=== PATIENT | male | born 1950 | race Caucasian/White ===

== ENCOUNTER 2018-11-23 09:14 | Outpatient (CLI) | payer MEDICARE, SELFPAY ==
[2018-11-23 11:26] VITALS: BMI 19.3
[2018-11-23 11:41] LABS: Hematocrit 52.3 % (42.0-52.0); Hemoglobin 16.9 g/dL (14.1-18.0)
--- NOTE | 2018-11-23 15:54 | PC.NURSE ---
11/23/18 1230 Pt here for therapeutic phlebotomy per equipment operator/laborer. #20 gauge saline lock started in L AC for procedure. Pre VS BP 156/93, heart rate 73, resp 18, O2 sats 98% room air, temp 98.5 temporal. Phlebotomy performed per equipment operator/laborer with pt [place] well/no problems/denies complaints. VS post phlebotomy 164/94, HR 79, resp 18, O2 sats 98% room air, temp 98.3. IV removed/pt discharged home stable condition.
== END 2018-11-23 13:05 | disposition home or self-care (01) ==
PROVIDERS: PCP Family Medicine; Visit Provider Family Medicine
DX: D75.1 Secondary polycythemia (principal)
CPT/HCPCS: 85014; 85018; 99195

== ENCOUNTER 2020-02-04 11:10 | Emergency (ER) | payer MEDICARE, SELFPAY ==
[2020-02-04 11:16] VITALS: BP 150/98; PULSE 92; RESP 18; O2SAT 98; BMI 20.7
[2020-02-04 11:20] VITALS: BMI 20.7
--- NOTE | 2020-02-04 11:21 | XR_ITS ---
PROCEDURE: XR HIP RT 2-3V W/PELVIS CLINICAL INDICATION: fall Posttraumatic pain COMPARISON: No exams were available for comparison FINDINGS: No fracture or dislocation is evident. No significant degenerative change. No lytic or blastic change. Unremarkable soft tissues. IMPRESSION: No acute findings. Dictated by: Rashad Ramey MD 02/04/2020 13:43 Rashad Ramey MD in [place] 02/04/2020 13:43
[2020-02-04 11:28] VITALS: BP 140/86; PULSE 74; O2SAT 98
--- NOTE | 2020-02-04 11:29 | PC.NURSE ---
Pt to rad.
[2020-02-04 11:41] VITALS: BP 134/90; PULSE 87; O2SAT 99
--- NOTE | 2020-02-04 11:41 | HMH.EDGENADL ---
ED Disposition Clinical Impression: Hematoma of right flank Qualifiers: Encounter type: initial encounter Qualified Code(s): S30.1XXA - Contusion of abdominal wall, initial encounter Disposition: Home, Self-Care Condition on Discharge: Good Instructions: DI for Hematoma (Bruise) Additional Instructions: Tylenol for pain. [place] for pain at night to help you sleep. Soaks in warm shower or bath or warm compresses. Follow-up with primary care provider in 3 to 4 days. Additional instructions for CONTROLLED SUBSTANCES: You have been prescribed a medication that is a controlled substance. Controlled substances include pain medications known as opiates and sedative nerve medications known as benzodiazepines. Tramadol, fioricet, and gabapentin are also controlled substances. Some common opiates include: Codeine (such as Tylenol #3) Hydrocodone (Vicodin, Lortab, Lorcet, [place]) Oxycodone (Percocet, Percodan, Oxycodone, Oxy IR) Some common benzodiazepines include: Diazepam (Valium) Lorazepam (Ativan) Alprazolam (Xanax) Clonazepam (Klonopin) Oxazepam (Serax) All of these controlled substances are highly addictive and frequently abused. Misuse can and frequently does lead to addiction as well as overdose and . Medication should be stored in a locked cabinet or other secure storage unit. Do not store the medication in a motor vehicle. Short term supplies, 3 days or less, are prescribed because of the highly addictive nature of the medication. Any of the controlled substance medication NOT taken should be disposed of properly and NOT SAVED. The recommended method of disposing of unused medications is: Place the medicines in a sealable plastic bag. If the medicine is a solid, crush it or add water to dissolve it. Add something undesirable (cat litter, coffee grounds, etc.) Dispose of sealed bag in household trash Do not flush or pour unused medicines down a sink or drain. Controlled substances should not be shared, given away or sold. Because of the addictive nature and frequent abuse, these medications are sometimes stolen. These medications should be kept in a safe place where they cannot be stolen. Do not keep them in your car or purse. Lost or stolen prescriptions for controlled substances WILL NOT BE REFILLED in this emergency department, regardless of whether a police report was filed. Prescriptions: Hydrocod/Acet 5/325 mg [[place] 5/325mg tablet] 1 tab PO Q6HP PRN #10 tab PRN Reason: Pain Transmission Status: Received by [id number] Referrals: Alexandra Rizzo MD [Primary Care Provider] - - Critical Care Critical Care Time: No Attestation: On 02/04/20, the high probability of a clinically significant, sudden or life threatening deterioration of the following system(s) required my full and direct attention, intervention and personal management. The time I documented below is in addition to time spent performing reported procedures but includes the following listed in this critical care notation. Medical Decision Making - Jack Inquiry Pt receiving controlled substance: Yes Jack was queried for this patient: Yes Reference #:: [id number] Risks and benefits of using a controlled substance: were discussed with pt by me Comment: 0 rxs. Vital Signs: 02/04/20 11:16 02/04/20 11:28 Pulse Rate [Radial] 92 H 74 Respiratory Rate 18 Blood Pressure [Right Arm] 150/98 H 140/86 Blood Pressure Mean [Right Arm] 115 104 Blood Pressure Source [Right Arm] Automatic Cuff Automatic Cuff Blood Pressure Position [Right Arm] Sitting Sitting 02 Sat by Pulse Oximetry 98 98 Oxygen Delivery Method Room Air Room Air Orders (Tests/Meds): ORDERS Category Date Time Status XR hip RT 2-3V w/pelvis Stat Exams 02/04/20 11:21 Taken - Radiology Data #1 Image(s): Hip Image Reviewed: Yes I reviewed the patient's radiology image Preliminary Findings: Normal/NAD General Adult HPI - Gene
[2020-02-04 12:11] VITALS: BP 134/90; PULSE 87; RESP 18; TEMP 36.7; O2SAT 99
== END 2020-02-04 12:12 | disposition home or self-care (01) ==
PROVIDERS: Emergency Provider Emergency Medicine; PCP Family Medicine
DX: S30.1XXA Contusion of abdominal wall, initial encounter (principal); W18.09XA Striking against other object with subsequent fall, initial encounter; Y92.89 Other specified places as the place of occurrence of the external cause; F17.210 Nicotine dependence, cigarettes, uncomplicated
CPT/HCPCS: 73502; 99282

== ENCOUNTER 2023-10-25 21:13 | Emergency (ER) | payer MEDICARE, SELFPAY ==
[2023-10-25 21:13] VITALS: BP 135/75; PULSE 91; RESP 22; TEMP 37.8; O2SAT 94; BMI 18.6
--- NOTE | 2023-10-25 21:20 | XR_ITS ---
PROCEDURE INFORMATION: Exam: XR Chest Exam date and time: 10/25/2023 9:26 PM Age: 73 years old Clinical indication: Shortness of breath; Additional info: SOB TECHNIQUE: Imaging protocol: Radiologic exam of the chest. Views: 1 view. COMPARISON: No relevant prior studies available. FINDINGS: Lungs: Lungs are hyperinflated. Clear parenchyma. Pleural spaces: No pleural effusion. No pneumothorax. Heart/Mediastinum: Cardiac silhouette is normal in size for technique. Bones/joints: Age appropriate. IMPRESSION: Hyperinflated but clear lungs. No other acute cardiopulmonary abnormality.
--- NOTE | 2023-10-25 21:23 | HMH.EDGENADL ---
Discharge Plan Disposition Patient Disposition: Home, Self-Care Chief Complaint: Shortness of Breath/Dyspnea Prescriptions Prescriptions: No Action aspirin 81 MG tablet,delayed release (DR/EC) 81 mg PO DAILY amlodipine-benazepril 1 EACH capsule 1 tab PO DAILY methocarbamol 750 MG tablet 750 mg PO BID Qty: 14 0RF methocarbamol 500 MG tablet 500 mg PO BID Qty: 14 0RF hydrocodone-acetaminophen 1 TAB tablet 1 tab PO Q6HP PRN (Reason: Pain) Qty: 10 0RF Referrals Follow up/Referrals: Provider,Referral, MD [Referring] - See instructions Activity Restrictions/Add. Instructions Additional Instructions/Restrictions: At this time it was felt you are safe to be discharged home. If new or worsening symptoms please do not hesitate to return the emergency department. Please follow-up with your family doctor for repeat evaluation of your salt in your blood which was a little bit low today. Clinical Impressions Clinical Impression: Acute viral syndrome, Hyponatremia Discharge ED Provider: Zaki Eng General Adult HPI General Chief complaint: Shortness of Breath/Dyspnea Stated complaint: Shaking and Fall Time Seen by Provider: 10/25/23 21:17 History of Present Illness HPI narrative: Patient is a 73-year-old male with past medical history of hypertension who presents emergency department for evaluation of a shaking episode. Patient earlier today had an episode of shaking and shortness of breath which has largely resolved prior to arrival. He tried to 3 beers over 30 minutes in an effort to prevent him from call 911 unfortunately his symptoms were refractory. He is currently complaining of just generally feeling unwell however no chest pain, no abdominal pain. Shortness of breath is largely resolved. No other acute complaints at this time. Related Data Home Medications Medication Instructions Recorded Confirmed amlodipine 5 mg-benazepril 20 mg 1 tab PO DAILY Hypertension 10/22/18 10/22/18 capsule aspirin 81 mg tablet,delayed 81 mg PO DAILY heart health 10/22/18 10/22/18 release Previous Rx's Medication Instructions Recorded methocarbamol 500 mg tablet 500 mg PO BID #14 tabs 10/22/18 methocarbamol 750 mg tablet 750 mg PO BID #14 tabs 10/22/18 hydrocodone 5 mg-acetaminophen 325 1 tab PO Q6HP PRN Pain #10 tabs 02/03/20 mg tablet Allergies Allergy/AdvReac Type Severity Reaction Status Date / Time No Known Allergies Allergy Verified 10/22/18 11:[address] [facility] Disclaimer: The information contained in this section may have been updated after the patient was seen, as this information can be updated by other users. Social History Smoking Status: Current every day smoker tobacco type: cigarettes packs per day: 2 second hand exposure: Yes alcohol intake: never current occupational status: other Travel in the last 8 weeks: None ROS Obtained: Yes Systems reviewed as appropriate & no additional complaints except as documented Physical Exam General General appearance: alert and in no apparent distress Head Head exam: atraumatic and normocephalic Eye Eye exam: Present PERRL and EOMI ENT ENT exam: Present mucous membranes moist Neck Neck exam: Present normal inspection Chest Chest inspection: Present normal inspection and symmetric chest wall rise Respiratory Respiratory exam: Present normal lung sounds bilaterally; Absent respiratory distress or wheezes Cardiovascular Cardiovascular exam: Present regular rate and normal rhythm Abdominal Exam Abdominal exam: Present soft; Absent tenderness Extremities Exam Extremities exam: Present normal inspection Neurological Exam Neurological exam: Present alert and CN II-XII intact; Absent motor sensory deficit Psychiatric Psychiatric exam: Present normal affect Skin Skin exam: Present warm and dry Medical Decision Making Jack Inquiry Pt receiving controlled substance: No Vital Signs: 10/25/23 21:13 Temperature 100.0 F H Temperature Source Oral Pulse Rate [Right Brachial] 91 H Respiratory Rate 22 Blood Pressure [Right Arm] 135/75 Blood Pressure Mean [Right Arm] 95 02 Sat by Pulse Oximetry 94 L Oxygen Delivery Method Room Air Lab Data Lab Results 10/25/23 21:20: WBC 8.3, RBC 4.48 L, Hgb 13.6 L, Hct 41.7 L, MCV 92.9, MCH 30.4, MCHC 32.7, RDW 14.1, Plt Count 263, MPV 8.0, Neut % (Auto) 91.2 H, Lymph % (Auto) 5.5 L, [place] % (Auto) 0.7 L, Eos % (Auto) 2.0, Baso % (Auto) 0.6, Neut # (Auto) 7.5, Lymph # (Auto) 0.5 L, [place] # (Auto) 0.1, Eos # (Auto) 0.2, Baso # (Auto) 0.1, Total Counted 100, Neutrophils % (Manual) 87 H, Lymphocytes % (Manual) 13, Platelet Estimate Normal, Stomatocytes 1+, Sodium 129 L, Potassium 3.9, Chloride 97 L, Carbon Dioxide 25, Anion Gap 10.9, BUN 11, Creatinine 1.10, Estimated Creat Clear 49, Estimated GFR 65, Est GFR ( Amer) 79, Glucose 85, Calcium 9.3, Magnesium 1.7, Total Bilirubin 1.1, AST 32, ALT 17, Alkaline Phosphatase 73, Troponin I < 0.01, Total Protein 6.9, Albumin 4.1, Globulin 2.8, Albumin/Globulin Ratio 1.5, Plasma/Serum Alcohol 76 H 10/25/23 21:20 10/25/23 21:20 Orders (Tests/Meds): ED MEDICATIONS Discontinued Medications Generic Name Dose Route Start Last Admin Trade Name Freq PRN Reason Stop Dose Admin Acetaminophen 1,000 mg 10/25/23 21:21 10/25/23 21:30 Acetaminophen 500mg Tab PO 10/25/23 21:22 1,000 mg ONCE ONE Administration ORDERS Category Date Time Status CXR --portable [XR chest portable] Stat Exams 10/25/23 21:20 Taken CBC w/Auto Diff [Complete Blood Count Auto Diff] Stat Lab 10/25/23 21:20 Completed CMP [Comprehensive Metabolic Panel] Stat Lab 10/25/23 21:20 Completed Ethanol [Ethyl Alcohol] Stat Lab 10/25/23 21:20 Completed MG [Magnesium] Stat Lab 10/25/23 21:20 Completed Trop I [Troponin I] Stat Lab 10/25/23 21:20 Completed Troponin I Q3H Lab 10/26/23 00:30 Ordered Troponin I Q3H Lab 10/26/23 03:30 Ordered ECG Data Tracing #1: Independently interpreted by me, rate is 82, rhythm is regular, axis is leftward deviated, no ST elevation in anatomical contiguous leads, QTc 365. Medical Decision Narrative: In summary patient is a 73-year-old male past medical history described above who presents emergency department for evaluation of multiple complaints. Patient is hemodynamically stable nontoxic-appearing upon arrival, afebrile. Patient has no tremors, no tachycardia, minimal shortness of breath. Differential includes alcohol dependence, electrolyte abnormality, atypical ACS, among others. Workup will be conducted with hematologic labs, chest x-ray, EKG, single troponin. Initial inventions include Tylenol. Workup reviewed by me, hematologic labs are nonactionable, mild hyponatremia consistent with alcohol intake. Serum alcohol 76. Upon repeat evaluation patient continued to be well-appearing, initial troponin undetectably low. Patient has no ongoing tremors or symptoms at this time. Patient likely has viral syndrome. Patient is clinically sober and is appropriate for discharge and was given return precautions. Critical Care Critical Care Time Critical Care Time: No
[2023-10-25] MEDS: ACETAMINOPHEN 500MG TAB 1000 MG PO (21:30)
--- NOTE | 2023-10-25 21:33 | ECG_ITS ---
APPROVED REPORT Exam: Resting ECG HR:82 bpm ECG Measurements Heart Rate 82 AXES NV 162 P 74 QRSd 96 QRS -62 QT 326 T 72 QTc 365 Conclusion SINUS RHYTHM INCOMPLETE RIGHT BUNDLE BRANCH BLOCK [90+ ms QRS DURATION, TERMINAL R IN V1/V2, 40+ ms S IN I/aVL/V4/V5/V6] LEFT ANTERIOR FASCICULAR BLOCK [QRS AXIS <= -45, QR IN I, RS IN II] ABNORMAL ECG Electronically signed by : TIFFANIE TORRE, 10/30/2023 04:13:27
[2023-10-25 21:36] LABS: Basophils # 0.1 K/mm3 (0-0.2); Basophils % 0.6 % (0.1-2.0); Eosinophils # 0.2 K/mm3 (0.0-0.4); Hematocrit 41.7 % (42.0-52.0); Hemoglobin 13.6 g/dL (14.1-18.0); Lymphocytes # 0.5 K/mm3 (0.7-4.5); Lymphocytes % 5.5 % (10-50); Mean Corpuscular HGB Conc 32.7 g/dL (31.8-35.4); Mean Corpuscular Hemoglobin 30.4 pg (27.0-31.2); Mean Corpuscular Volume 92.9 fl (80-94); Monocytes # 0.1 K/mm3 (0.1-1.0); Monocytes % 0.7 % (1.7-9.3); Neutrophils # 7.5 K/mm3 (1.8-7.8); Neutrophils % 91.2 % (37.0-80.0); Platelet Count 263 K/mm3 (142-424); Red Blood Count 4.48 M/mm3 (4.60-6.20); Red Cell Distribution Width 14.1 % (11.5-17.5); White Blood Count 8.3 K/mm3 (4.8-10.8)
[2023-10-25 21:40] LABS: Chloride 97 mmol/L (98-107); Potassium 3.9 mmoL/L (3.5-5.1); Sodium 129 mmol/L (136-145)
[2023-10-25 21:41] LABS: MANUAL DIFFERENTIAL MANUAL DIFFERENTIAL (MANUAL DIFF)
[2023-10-25 21:43] LABS: Alanine Aminotransferase 17 U/L (12-78); Albumin Level 4.1 g/dl (3.5-5.0); Albumin/Globulin Ratio 1.5 (1.1-1.8); Alkaline Phosphatase 73 U/L (38-126); Anion Gap 10.9 mEq/L (5-15); Aspartate Amino Transferase 32 U/L (17-59); Bilirubin,Total 1.1 mg/dl (0.2-1.3); Blood Urea Nitrogen 11 mg/dl (9-20); Calcium 9.3 mg/dl (8.4-10.2); Carbon Dioxide 25 mmol/L (22.0-30.0); Creatinine Clearance Estimated 49 mL/min (50-200); Estimated Glomerular Filt Rate 65 ml/min (>60); GFR (African American) 79 ML/MIN (>60); Globulin 2.8 g/dL (1.3-3.2); Glucose 85 mg/dl (74-100); Magnesium 1.7 mg/dl (1.6-2.3); Total Protein,Serum 6.9 g/dl (6.3-8.2)
[2023-10-25 21:44] LABS: Ethyl Alcohol 76 mg/dl (0-10)
[2023-10-25 22:04] LABS: Troponin I < 0.01 ng/ml (0.00-0.034)
[2023-10-25 22:23] LABS: Lymphocytes % 13 % (10-50); Neutrophils % 87 % (42-76); Platelet Estimate Normal; Stomatocytes 1+; Total Cells Counted 100
[2023-10-25 23:10] VITALS: BP 117/61; PULSE 78; RESP 18; TEMP 37.2; O2SAT 94
== END 2023-10-25 23:11 | disposition home or self-care (01) ==
PROVIDERS: Emergency Provider Emergency Medicine; PCP Family Medicine
DX: E87.1 Hypo-osmolality and hyponatremia (principal); R06.02 Shortness of breath; B34.9 Viral infection, unspecified; F17.210 Nicotine dependence, cigarettes, uncomplicated; I10 Essential (primary) hypertension
CPT/HCPCS: 71045; 80053; 83735; 84484; 85007; 85025; 93005; 99284

== ENCOUNTER 2024-06-21 13:48 | Outpatient (CLI) | payer MEDICARE, SELFPAY ==
--- NOTE | 2024-06-21 13:51 | XR_ITS ---
FINAL REPORT CLINICAL HISTORY: Cough, shortness of breath for couple weeks, smoker COMPARISON: 10/25/2023 FINDINGS: Emphysema is noted. There is abnormal density right lateral thorax likely due to old rib fractures. No acute pulmonary density is evident. There is no evidence of effusion or other pleural disease. The mediastinum has a normal appearance. The cardiac silhouette is unremarkable. IMPRESSION: Emphysema without acute findings. Reviewed, Interpreted and Dictated by Rocco Morejon MD Transcribed by Treasure Juares Authenticated and [facility]
== END 2024-06-21 23:59 | disposition home or self-care (01) ==
LOC: RAD 13:49
PROVIDERS: PCP Family Medicine; Visit Provider Family Medicine
DX: R05.9 Cough, unspecified (principal)
CPT/HCPCS: 71046

== ENCOUNTER 2024-07-03 17:04 | Observation (INO) | payer MEDICARE, SELFPAY ==
[2024-07-03 17:05] VITALS: BP 170/108; PULSE 103; RESP 26; O2SAT 90; BMI 17.8
--- NOTE | 2024-07-03 17:11 | ED_ITS ---
<Statement entered by Zaki Eng MD - 07/03/24 23:18> I was consulted by the GENIA, and we discussed the complexity of the problems being addressed. I approved the treatment and management plan for this patient's care in the emergency department, thus performing a substantive portion of the medical decision making. Zaki Eng MD Discharge Plan Disposition Patient Disposition: Home, Self-Care Condition: Good Clinical Impressions Clinical Impression: Acute hypercapnic respiratory failure, Acute exacerbation of chronic obstructive pulmonary disease Discharge ED Provider: Zaki Eng General Adult HPI <LOKI Quintero - Last Filed: 07/03/24 21:10> General Chief complaint: Shortness of Breath/Dyspnea Stated complaint: Difficulty breathing Time Seen by Provider: 07/03/24 17:11 History of Present Illness HPI narrative: Patient presents for evaluation of dyspnea. Patient states that 4 days ago he went to see his PCP for shortness of breath. He was diagnosed with COPD for the first time. Patient was a smoker up until then. He reports that he was given a rescue inhaler which she has been utilizing. It helped at first but has stopped being beneficial. He reports significant dyspnea at rest and on exertion. He denies any fever chills hemoptysis hematochezia melena nausea vomiting diarrhea or chest pain. Related Data Home Medications ?Medication ?Instructions ?Recorded ?Confirmed amlodipine 5 mg-benazepril 20 mg 1 tab PO DAILY Hypertension 10/22/18 06/30/24 capsule aspirin 81 mg tablet,delayed 81 mg PO DAILY heart health 10/22/18 06/30/24 release losartan 25 mg tablet 25 mg PO 06/30/24 06/30/24 Previous Rx's ?Medication ?Instructions ?Recorded albuterol sulfate 90 mcg/actuation 2 puff inhalation Q4-6H PRN 06/19/24 aerosol inhaler shortness of breath or wheezing #8.5 grams Allergies Allergy/AdvReac Type Severity Reaction Status Date / Time No Known Allergies Allergy Verified 06/30/24 11:14 PFSH <LOKI Quintero - Last Filed: 07/03/24 21:10> [facility] Disclaimer: The information contained in this section may have been updated after the patient was seen, as this information can be updated by other users. Social History (Reviewed 06/30/24 @ 11:16 by SAM Donohue Smoking Status: Current every day smoker tobacco type: cigarettes packs per day: 2 second hand exposure: Yes alcohol intake: never current occupational status: other Travel in the last 8 weeks: None Have you lived/traveled outside US in past 30 days?: No Contact w/someone who lives/traveled outside US past 30 days?: No Exposure to someone with infectious disease in past 14 days?: No Do you have a fever (greater than 100.4 F or 38 C)?: No Have you tested positive for COVID-19: No Exposed to someone with COVID-19 in past 14 days?: No Do you have a sore throat?: No Do you have a cough?: No Do you have any weakness?: No Do you have any diarrhea?: No Are you experiencing any unusual bleeding?: No Do you have any muscle aches/pain?: No Do you have any abdominal pain?: No Are you experiencing loss of taste or smell?: No Other Medical History Have you received the Flu Vaccine for this season: No Have you received the Pneumonia Vaccine: No <LOKI Quintero - Last Filed: 07/03/24 21:10> ROS Obtained: Yes Systems reviewed as appropriate & no additional complaints except as documented Physical Exam <LOKI Quintero - Last Filed: 07/03/24 21:10> General General appearance: alert and in no apparent distress Respiratory Respiratory exam: Present respiratory distress, wheezes, accessory muscle use and prolonged expiratory phase Cardiovascular Cardiovascular exam: Present tachycardia Neurological Exam Neurological exam: Present alert and oriented X3 Medical Decision Making <LOKI Quintero - Last Filed: 07/03/24 21:10> Medical Records Medical records reviewed: Yes I reviewed the patient's medical records. Screening: Per USPSTF and CDC recommendations, given the prevalence of disease in our region, it is our hospital?s policy to screen for HIV and viral Hepatitis for all patients aged 18 and over and those with ongoing risk factors. Jack Inquiry Pt receiving controlled substance: No Vital Signs: 07/03/24 17:05 07/03/24 17:15 07/03/24 18:30 Pulse Rate 100 H 101 H Pulse Rate [Left Radial] 103 H Respiratory Rate 26 H 24 Blood Pressure 170/108 H 141/99 H Blood Pressure [Right Arm] 170/108 H Blood Pressure Mean 128 Blood Pressure Mean [Right Arm] 128 02 Sat by Pulse Oximetry 90 L 97 97 Oxygen Delivery Method Room Air Room Air Lab Data Lab results reviewed: Yes I reviewed the patient's lab results. Lab Results 07/03/24 17:25: WBC 8.2, RBC 5.18, Hgb 15.1, Hct 44.6, MCV 86.1, MCH 29.2, MCHC 33.9, RDW 12.1, Plt Count 279, MPV 11.1 H, Neut % (Auto) 58.3, Lymph % (Auto) 18.4, [place] % (Auto) 9.2, Eos % (Auto) 11.6, Baso % (Auto) 2.3 H, Neut # (Auto) 4.8, Lymph # (Auto) 1.5, [place] # (Auto) 0.8, Eos # (Auto) 1.0 H, Baso # (Auto) 0.2, Sodium 135 L, Potassium 4.8, Chloride 99, Carbon Dioxide 26, Anion Gap 14.8, BUN 15, Creatinine 1.00, Estimated Creat Clear 52, Estimated GFR 73, Est GFR ( Amer) 88, Glucose 121 H, Calcium 9.6, Magnesium 1.8, Total Bilirubin 0.8, AST 48, ALT 37, Alkaline Phosphatase 102, Troponin I < 0.01, N T-Pro-B Natriuret Pep 145 H, Total Protein 8.1, Albumin 4.8, Globulin 3.3 H, Albumin/Globulin Ratio 1.5, Procalcitonin 0.038, HCV Ab MICHAEL w/Rflx PCR Qn Negative, HIV Ag/Ab Combo Qual Negative 07/03/24 17:29: VBG pH 7.30 L, VBG pCO2 52.1 H, VBG pO2 41.4 H, VBG HCO3 25.2, VBG Total CO2 26.8, VBG O2 Saturation 70.5 H, VBG Base Excess -1.1, VBG Lactic Acid 1.5 07/03/24 20:22: Troponin I < 0.01 07/03/24 17:25 07/03/24 17:25 Orders (Tests/Meds): ED MEDICATIONS Discontinued Medications Generic Name Dose Route Start Last Admin Trade Name Freq PRN Reason Stop Dose Admin Albuterol Sulfate 20 mg 07/03/24 18:58 07/03/24 19:11 Albuterol 0.083% 2.5 Mg/3 Ml [facility] 07/03/24 18:59 20 mg ONCE ONE Administration Albuterol/Ipratropium 9 ml 07/03/24 17:22 07/03/24 17:22 Ipratropium/Albuterol 3 Ml Neb 07/03/24 17:23 9 ml ONCE ONE Administration Azithromycin 500 mg/ Sodium 250 mls @ 250 mls/hr 07/03/24 18:58 07/03/24 19:27 Chloride IV 07/03/24 18:59 250 mls/hr ONCE ONE Administration Magnesium Sulfate 2 gm in 50 mls @ 50 mls/hr 07/03/24 19:18 07/03/24 19:27 Magnesium Sulfate 2gm/50ml Premix IV 07/03/24 20:17 50 mls/hr ONCE ONE Administration Methylprednisolone Sodium Succinate 125 mg 07/03/24 17:22 07/03/24 17:42 Methylprednisolone Sod Succ 125mg Vial IV 07/03/24 17:23 125 mg ONCE ONE Administration ORDERS Category Date Time Status Chest XR 2 view (NOT portable) [XR chest 2V] Stat Exams 07/03/24 17:23 Completed BNP [NT Pro Brain Natriuretic Pep.] Stat Lab 07/03/24 17:25 Completed CBC w/Auto Diff [Complete Blood Count Auto Diff] Stat Lab 07/03/24 17:25 Completed CMP [Comprehensive Metabolic Panel] Stat Lab 07/03/24 17:25 Completed HIV Combo Stat Lab 07/03/24 17:25 Completed Hepatitis C Ab Qual. W/ RFX Stat Lab 07/03/24 17:25 Completed Magnesium Stat Lab 07/03/24 17:25 Completed Mini Respiratory Panel Stat Lab 07/03/24 19:11 Received Procalcitonin Stat Lab 07/03/24 17:25 Completed Trop I [Troponin I] Stat Lab 07/03/24 17:25 Completed Troponin I Q3H Lab 07/03/24 20:22 Completed Troponin I Q3H Lab 07/03/24 23:30 Ordered VBG [Venous Blood Gas] Stat RT 07/03/24 17:29 Completed Medical Decision Narrative: In summary patient is a 3-year-old gentleman who presents to the emergency department for evaluation of dyspnea. Patient is initially hypertensive at 170/108 tachycardic at 103 with sinus tachycardia on his bedside monitor breathing 26 times a minute satting at 90% on room air upon arrival, afebrile. Physical exam is remarkable for diminished air entry in all 4 lung nur, inspiratory and expiratory wheezes in all 4 nur, accessory muscle use, tachypnea, pursed lip breathing. Patient has no dependent edema noted.. Differential diagnosis includes COPD exacerbation versus viral bacterial pneumonia versus ACS etc. Initial workup will be conducted with hematologic labs plain film chest x-ray VBG respiratory panel. Initial interventions include DuoNeb Solu-Medrol supplemental O2 continuous pulse oximetry and cardiac monitoring. Initial workup reviewed by me shows that his white count is 8.2 with normal H&H with no left shift, VBG shows a pH of 7.30 pCO2 of 52.1 pCO2 of 41.4 with a VBG lactic acid 1.5, CMP significant for sodium of 135 glucose 121 with remainder of his CMP being nonactionable, procalcitonin is 0.038, troponins are negative and the delta is flat, NT proBNP is 145. Upon repeat evaluation patient still has significant increased work of breathing and wheezing. Given this we ordered an hour-long albuterol neb. Upon reevaluation an hour later patient had improvement in his breath sounds however he is still wheezing still tachypneic still with accessory muscle use and pursed lip breathing. Given this I had interact discussion with hospital medicine regarding patient LEE and findings and he will be admitted for further evaluation and care <Zaki Eng MD - Last Filed: 07/03/24 17:33> Vital Signs: 07/03/24 17:05 07/03/24 17:15 07/03/24 18:30 Pulse Rate 100 H 101 H Pulse Rate [Left Radial] 103 H Respiratory Rate 26 H 24 Blood Pressure 170/108 H 141/99 H Blood Pressure [Right Arm] 170/108 H Blood Pressure Mean 128 Blood Pressure Mean [Right Arm] 128 02 Sat by Pulse Oximetry 90 L 97 97 Oxygen Delivery Method Room Air Room Air Lab Data Lab Results 07/03/24 17:25: WBC 8.2, RBC 5.18, Hgb 15.1, Hct 44.6, MCV 86.1, MCH 29.2, MCHC 33.9, RDW 12.1, Plt Count 279, MPV 11.1 H, Neut % (Auto) 58.3, Lymph % (Auto) 18.4, [place] % (Auto) 9.2, Eos % (Auto) 11.6, Baso % (Auto) 2.3 H, Neut # (Auto) 4.8, Lymph # (Auto) 1.5, [place] # (Auto) 0.8, Eos # (Auto) 1.0 H, Baso # (Auto) 0.2, Sodium 135 L, Potassium 4.8, Chloride 99, Carbon Dioxide 26, Anion Gap 14.8, BUN 15, Creatinine 1.00, Estimated Creat Clear 52, Estimated GFR 73, Est GFR ( Amer) 88, Glucose 121 H, Calcium 9.6, Magnesium 1.8, Total Bilirubin 0.8, AST 48, ALT 37, Alkaline Phosphatase 102, Troponin I < 0.01, N T-Pro-B Natriuret Pep 145 H, Total Protein 8.1, Albumin 4.8, Globulin 3.3 H, Albumin/Globulin Ratio 1.5, Procalcitonin 0.038, HCV Ab MICHAEL w/Rflx PCR Qn Negative, HIV Ag/Ab Combo Qual Negative 07/03/24 17:29: VBG pH 7.30 L, VBG pCO2 52.1 H, VBG pO2 41.4 H, VBG HCO3 25.2, VBG Total CO2 26.8, VBG O2 Saturation 70.5 H, VBG Base Excess -1.1, VBG Lactic Acid 1.5 07/03/24 20:22: Troponin I < 0.01 Orders (Tests/Meds): ED MEDICATIONS Discontinued Medications Generic Name Dose Route Start Last Admin Trade Name Deisi PRN Reason Stop Dose Admin Albuterol Sulfate 20 mg 07/03/24 18:58 07/03/24 19:11 Albuterol 0.083% 2.5 Mg/3 Ml Neb 07/03/24 18:59 20 mg ONCE ONE Administration Albuterol/Ipratropium 9 ml 07/03/24 17:22 07/03/24 17:22 Ipratropium/Albuterol 3 Ml [facility] 07/03/24 17:23 9 ml ONCE ONE Administration Azithromycin 500 mg/ Sodium 250 mls @ 250 mls/hr 07/03/24 18:58 07/03/24 19:27 Chloride IV 07/03/24 18:59 250 mls/hr ONCE ONE Administration Magnesium Sulfate 2 gm in 50 mls @ 50 mls/hr 07/03/24 19:18 07/03/24 19:27 Magnesium Sulfate 2gm/50ml Premix IV 07/03/24 20:17 50 mls/hr ONCE ONE Administration Methylprednisolone Sodium Succinate 125 mg 07/03/24 17:22 07/03/24 17:42 Methylprednisolone Sod Succ 125mg Vial IV 07/03/24 17:23 125 mg ONCE ONE Administration ORDERS Category Date Time Status Chest XR 2 view (NOT portable) [XR chest 2V] Stat Exams 07/03/24 17:23 Completed BNP [NT Pro Brain Natriuretic Pep.] Stat Lab 07/03/24 17:25 Completed CBC w/Auto Diff [Complete Blood Count Auto Diff] Stat Lab 07/03/24 17:25 Completed CMP [Comprehensive Metabolic Panel] Stat Lab 07/03/24 17:25 Completed HIV Combo Stat Lab 07/03/24 17:25 Completed Hepatitis C Ab Qual. W/ RFX Stat Lab 07/03/24 17:25 Completed Magnesium Stat Lab 07/03/24 17:25 Completed Mini Respiratory Panel Stat Lab 07/03/24 19:11 Received Procalcitonin Stat Lab 07/03/24 17:25 Completed Trop I [Troponin I] Stat Lab 07/03/24 17:25 Completed Troponin I Q3H Lab 07/03/24 20:22 Completed Troponin I Q3H Lab 07/03/24 23:30 Ordered VBG [Venous Blood Gas] Stat RT 07/03/24 17:29 Completed ECG Data Tracing #1: Independently interpreted by me rate is 94, rhythm is largely regular, axis is leftward deviated, no ST elevation in anatomical contiguous leads, sinus rhythm with isolated PVC. QTc 370. Critical Care <LOKI Quintero - Last Filed: 07/03/24 21:10> Critical Care Time Critical Care Time: Yes Attestation: On 07/03/24, the high probability of a clinically significant, sudden or life threatening deterioration of the following system(s) required my full and direct attention, intervention and personal management. The time I documented below is in addition to time spent performing reported procedures but includes the following listed in this critical care notation. Total Time Total Critical Care Time: 35
[2024-07-03 17:15] VITALS: BP 170/108; PULSE 100; O2SAT 97
--- NOTE | 2024-07-03 17:18 | ECG_ITS ---
APPROVED REPORT Exam: Resting ECG HR:94 bpm ECG Measurements Heart Rate 94 AXES OR 164 P 85 QRSd 86 QRS -76 QT 318 T 78 QTc 370 Conclusion SINUS RHYTHM WITH OCCASIONAL VENTRICULAR PREMATURE COMPLEXES RIGHT ATRIAL ENLARGEMENT [0.3mV P-WAVE] LEFT ANTERIOR FASCICULAR BLOCK [QRS AXIS <= -45, QR IN I, RS IN II] ANTEROSEPTAL MYOCARDIAL INFARCTION , OF INDETERMINATE AGE [40+ ms Q WAVE IN V1-V4] ABNORMAL ECG Electronically signed by : TIFFANIE TORRE, 07/03/2024 21:33:39
[2024-07-03] MEDS: IPRATROPIUM/ALBUTEROL 3 ML NEB 9 ML IH (17:22)
--- NOTE | 2024-07-03 17:23 | XR_ITS ---
PROCEDURE INFORMATION: Exam: XR Chest Exam date and time: 07/03/2024 6:29 PM Age: 73 years old Clinical indication: Dyspnea TECHNIQUE: Imaging protocol: Radiologic exam of the chest. Views: 2 views. COMPARISON: CR XR CHEST 2V 06/21/2024 1:51 PM FINDINGS: Lungs: Unremarkable. No consolidation. Pleural spaces: Unremarkable. No pleural effusion. No pneumothorax. Heart/Mediastinum: Unremarkable. No cardiomegaly. Bones/joints: Moderate degenerative changes of the thoracic spine with accentuated thoracic kyphosis. No vertebral body compression or acute fracture. IMPRESSION: No acute disease
[2024-07-03 17:38] LABS: Basophils # 0.2 K/mm3 (0-0.2); Basophils % 2.3 % (0.1-2.0); Eosinophils % 11.6 % (0.1-12.0); Hematocrit 44.6 % (42.0-52.0); Hemoglobin 15.1 g/dL (14.1-18.0); Lymphocytes # 1.5 K/mm3 (0.7-4.5); Lymphocytes % 18.4 % (10-50); Mean Corpuscular HGB Conc 33.9 g/dL (31.8-35.4); Mean Corpuscular Hemoglobin 29.2 pg (27.0-31.2); Mean Corpuscular Volume 86.1 fl (80-94); Mean Platelet Volume 11.1 fl (7.4-10.4); Monocytes # 0.8 K/mm3 (0.1-1.0); Monocytes % 9.2 % (1.7-9.3); Neutrophils # 4.8 K/mm3 (1.8-7.8); Neutrophils % 58.3 % (37.0-80.0); Platelet Count 279 K/mm3 (142-424); Red Blood Count 5.18 M/mm3 (4.60-6.20); Red Cell Distribution Width 12.1 % (11.5-17.5); White Blood Count 8.2 K/mm3 (4.8-10.8)
[2024-07-03] MEDS: METHYLPREDNISOLONE SOD SUCC 125MG VIAL 125 MG IV (17:42)
[2024-07-03 17:44] LABS: Albumin Level 4.8 g/dl (3.5-5.0)
[2024-07-03 17:45] LABS: Chloride 99 mmol/L (98-107); Potassium 4.8 mmoL/L (3.5-5.1); Sodium 135 mmol/L (136-145)
[2024-07-03 17:47] LABS: Alanine Aminotransferase 37 U/L (12-78); Aspartate Amino Transferase 48 U/L (17-59); Blood Urea Nitrogen 15 mg/dl (9-20); Creatinine Clearance Estimated 52 mL/min (50-200); Estimated Glomerular Filt Rate 73 ml/min (>60); GFR (African American) 88 ML/MIN (>60)
[2024-07-03 17:48] LABS: Albumin/Globulin Ratio 1.5 (1.1-1.8); Alkaline Phosphatase 102 U/L (38-126); Anion Gap 14.8 mEq/L (5-15); Bilirubin,Total 0.8 mg/dl (0.2-1.3); Calcium 9.6 mg/dl (8.4-10.2); Carbon Dioxide 26 mmol/L (22.0-30.0); Globulin 3.3 g/dL (1.3-3.2); Glucose 121 mg/dl (74-100); Magnesium 1.8 mg/dl (1.6-2.3); Total Protein,Serum 8.1 g/dl (6.3-8.2)
[2024-07-03 17:51] LABS: Lactate Venous 1.5 mmol/L (0.4-2.0); VBG Base Excess -1.1 mmol/L (-2.4-2.3); VBG HCO3 25.2 mmol/L (23-30); VBG Oxygen Saturation 70.5 % (50-70); VBG PCO2 52.1 mmol/L (35-51); VBG PO2 41.4 mmol/L (28-40); VBG Total CO2 26.8 mmol/L (23-27)
[2024-07-03 17:58] LABS: NT Pro Brain Natriuretic Pep. 145 pg/mL (0-125)
[2024-07-03 18:03] LABS: Troponin I < 0.01 ng/ml (0.00-0.034)
[2024-07-03 18:05] LABS: Procalcitonin 0.038 ng/mL (0.0-2.0)
[2024-07-03 18:30] VITALS: BP 141/99; PULSE 101; RESP 24; O2SAT 97
[2024-07-03 19:07] LABS: Hepatitis C Ab Qual. W/ RFX NEGATIVE (Negative)
[2024-07-03] MEDS: ALBUTEROL 0.083% 2.5 MG/3 ML NEB 20 MG IH (19:11)
[2024-07-03 19:14] LABS: Coronavirus 19, PCR Not Detected (NotDetected); Human Rhinovirus Not Detected (NotDetected); Influenza A, PCR Not Detected (NotDetected); Influenza B, PCR Not Detected (NotDetected); Respiratory Syncytial Virus Not Detected (NotDetected)
[2024-07-03] MEDS: AZITHROMYCIN 500 MG in 0.9 % SODIUM CHLORIDE 250 ML 250 MG IV (19:27)
[2024-07-03] MEDS: MAGNESIUM SULFATE IN WATER 2 GM/50 ML PIGGYBACK IV (19:27)
[2024-07-03 20:54] LABS: HIV Combo NEGATIVE (Negative)
[2024-07-03 21:00] LABS: Troponin I < 0.01 ng/ml (0.00-0.034)
[2024-07-03 21:04] VITALS: BP 110/81; PULSE 85; RESP 22; TEMP 36.6; O2SAT 94
--- NOTE | 2024-07-03 21:09 | PC.NURSE ---
Patient arrived to floor via wheelchair from ED at 21:08.
[2024-07-03 21:19] VITALS: BP 131/80; PULSE 98; RESP 22; TEMP 36.7; O2SAT 92; BMI 16.7
--- NOTE | 2024-07-03 21:33 | P.HP_ITS ---
History of Present Illness *Admission Date: 07/03/24 *Reason for visit:: shortness of breath *History of present illness: Patient presents for evaluation of dyspnea. Patient states that 4 days ago he went to see his PCP for shortness of breath. He was diagnosed with COPD for the first time. Patient was a smoker up until then. has not smoked since then He reports that he was given a rescue inhaler which she has been utilizing. It helped at first but has stopped being beneficial. He reports significant dyspnea at rest and on exertion. He denies any fever chills hemoptysis hematochezia melena nausea vomiting diarrhea or chest pain. In ER given continuous breathing treatment with cimprovement of symptoms after a few hours. Also recieved steroids and athythromycin. Denies chest pains currently HAs had a stroke in the past. unknown eitiology. Does not take any medications [facility] Disclaimer: The information contained in this section may have been updated after the alisson tequila was seen, as this information can be updated by other users. Medical History (Updated 07/03/24 @ 21:34 by Ezequiel Weeks RN) COPD (chronic obstructive pulmonary disease) Stroke Hypertension Social History Smoking Status: Current every day smoker tobacco type: cigarettes packs per day: 2 second hand exposure: Yes alcohol intake: never current occupational status: other Travel in the last 8 weeks: None Have you lived/traveled outside US in past 30 days?: No Contact w/someone who lives/traveled outside US past 30 days?: No Exposure to someone with infectious disease in past 14 days?: No Do you have a fever (greater than 100.4 F or 38 C)?: No Have you tested positive for COVID-19: No Exposed to someone with COVID-19 in past 14 days?: No Do you have a sore throat?: No Do you have a cough?: No Do you have any weakness?: No Do you have any diarrhea?: No Are you experiencing any unusual bleeding?: No Do you have any muscle aches/pain?: No Do you have any abdominal pain?: No Are you experiencing loss of taste or smell?: No Other Medical History Have you received the Flu Vaccine for this season: No Have you received the Pneumonia Vaccine: No Review of Systems Review of Systems Review of systems:: unable to obtain Meds Home Medications and Allergies Home Medications ?Medication ?Instructions ?Recorded ?Confirmed ?Type amlodipine 5 mg-benazepril 20 mg 1 tab PO DAILY Hypertension 10/22/18 06/30/24 History capsule aspirin 81 mg tablet,delayed 81 mg PO DAILY heart health 10/22/18 06/30/24 History release albuterol sulfate 90 mcg/actuation 2 puff inhalation Q4-6H PRN 06/19/24 06/30/24 Rx aerosol inhaler shortness of breath or wheezing #8.5 grams losartan 25 mg tablet 25 mg PO 06/30/24 06/30/24 History New Prescriptions to Start Prescriptions: Allergies Allergy/AdvReac Type Severity Reaction Status Date / Time No Known Allergies Allergy Verified 06/30/24 11:14 Exam Data for Last 24 hours Vital signs and Labs for Last 24 Hours: Temp Pulse Resp BP Pulse Ox O2 Del Method 98.0 F 98 H 22 131/80 92 L Room Air 07/03/24 21:19 07/03/24 21:19 07/03/24 21:19 07/03/24 21:19 07/03/24 21:19 07/03/24 21:19 Laboratory Results - last 24 hr 07/03/24 17:25: WBC 8.2, RBC 5.18, Hgb 15.1, Hct 44.6, MCV 86.1, MCH 29.2, MCHC 33.9, RDW 12.1, Plt Count 279, MPV 11.1 H, Neut % (Auto) 58.3, Lymph % (Auto) 18.4, [place] % (Auto) 9.2, Eos % (Auto) 11.6, Baso % (Auto) 2.3 H, Neut # (Auto) 4.8, Lymph # (Auto) 1.5, [place] # (Auto) 0.8, Eos # (Auto) 1.0 H, Baso # (Auto) 0.2, Sodium 135 L, Potassium 4.8, Chloride 99, Carbon Dioxide 26, Anion Gap 14.8, BUN 15, Creatinine 1.00, Estimated Creat Clear 52, Estimated GFR 73, Est GFR ( Amer) 88, Glucose 121 H, Calcium 9.6, Magnesium 1.8, Total Bilirubin 0.8, AST 48, ALT 37, Alkaline Phosphatase 102, Troponin I < 0.01, NT-Pro-B Natriuret Pep 145 H, Total Protein 8.1, Albumin 4.8, Globulin 3.3 H, Albumin/Globulin Ratio 1.5, Procalcitonin 0.038, HCV Ab MICHAEL w/Rflx PCR Qn Nega tive, HIV Ag/Ab Combo Qual Negative 07/03/24 17:29: VBG pH 7.30 L, VBG pCO2 52.1 H, VBG pO2 41.4 H, VBG HCO3 25.2, VBG Total CO2 26.8, VBG O2 Saturation 70.5 H, VBG Base Excess -1.1, VBG Lactic Acid 1.5 07/03/24 20:22: Troponin I < 0.01 I & O for Last 24 hours: Intake & Output 06/30/24 07/01/24 07/02/24 07/03/24 23:59 23:59 23:59 23:59 Weight 53.07 kg Constitutional Constitutional: no acute distress *Routine HEENT Exam Head: Present normocephalic Eye: Present EOMI ENT: Present mucous membranes moist *Routine Neck Exam Neck: Present full ROM; Absent carotid bruit *Routine Respiratory Exam Respiratory: Present CTA bilaterally *Routine Cardiovascular Exam Cardiovascular: Present RRR, Normal S1 and Normal S2; Absent murmur *Routine Abdominal Exam Abdominal: Present soft *Routine Rectal Exam Rectal:: deferred *Routine Genitalia Exam Genitalia:: deferred *Routine Extremities Exam Extremities: Present full ROM; Absent cyanosis, clubbing or edema *Routine Skin Exam Skin: Present intact *Routine Neurological Exam Neurological: Present alert, oriented X3 and CN II-XII intact Assessment and Plan *Assessment and plan (1) Acute exacerbation of chronic obstructive pulmonary disease: Status: Acute Category: Medical Code(s): J44.1 - Chronic obstructive pulmonary disease with (acute) exacerbation (2) Cough: Status: Acute Category: Medical Code(s): R05.9 - Cough, unspecified (3) History of CVA (cerebrovascular accident): Status: Acute Category: Medical Code(s): Z86.73 - Personal history of transient ischemic attack (TIA), and cerebral infarction without residual deficits (4) Mild essential hypertension: Status: Acute Category: Medical Code(s): I10 - Essential (primary) hypertension Plan admitted for COPD exxacerbation, improved with breathing treatments. Will admit for further management. Pulm consulted given newly diagnosed copd with exacerbation. COPD - abuterol - duonebs - pulm consult - outpatient low dose ct lung cancer screening Abnormal EKG - echo ordered - lipid panel, a1c ordered - high pre test liklihood of CAD given multiple untreated cardiovascular risk factors, will consult cardiology to ensure cards follow up outpatient for management and further evaluation tobacco use - aaa US screening prior CVA - lipid panel - start high intensity statin in AM for secondary prevention, liptor 40 - LDL goal < 55
[2024-07-03 22:24] LABS: Chol/HDL Ratio 2.7 (1-3.5); Cholesterol 158 mg/dl (140-200); HDL Cholesterol 58 mg/dl (40-60); Triglycerides 81 mg/dl (30-150); VLDL Cholesterol 16 mg/dL (0-40)
[2024-07-03 22:36] LABS: Direct LDL Cholesterol 83.26 mg/dL (100-129)
[2024-07-03 23:53] LABS: Hemoglobin A1C 5.8 % (4.0-6.0)
--- NOTE | 2024-07-04 | US_ITS ---
FINAL REPORT TECHNIQUE: Ultrasound images of the abdominal aorta were obtained. CLINICAL HISTORY: .aaa screening COMPARISON: None FINDINGS: ULTRASOUND OF THE ABDOMINAL AORTA The aorta measures up to 2.1 cm. Moderate plaque is noted. The bifurcation is normal. IMPRESSION: No evidence of abdominal aortic aneurysm. Reviewed, Interpreted and Dictated by Michael Waite MD Transcribed by Elba Dillard Authenticated and [facility]
[2024-07-04 00:26] LABS: Troponin I < 0.01 ng/ml (0.00-0.034)
[2024-07-04 04:00] VITALS: BP 121/69; PULSE 101; RESP 17; TEMP 36.4; O2SAT 96; BMI 16.7
[2024-07-04] MEDS: IPRATROPIUM/ALBUTEROL 3 ML NEB IH (06:19)
[2024-07-04 06:20] VITALS: PULSE 91; PULSE 95
[2024-07-04 06:46] LABS: Basophils % 0.3 % (0.1-2.0); Hematocrit 36.6 % (42.0-52.0); Lymphocytes # 0.5 K/mm3 (0.7-4.5); Lymphocytes % 13.2 % (10-50); Mean Corpuscular HGB Conc 34.4 g/dL (31.8-35.4); Mean Corpuscular Hemoglobin 28.9 pg (27.0-31.2); Mean Corpuscular Volume 83.9 fl (80-94); Mean Platelet Volume 11.2 fl (7.4-10.4); Monocytes # 0.1 K/mm3 (0.1-1.0); Monocytes % 3.1 % (1.7-9.3); Neutrophils % 83.1 % (37.0-80.0); Platelet Count 260 K/mm3 (142-424); Red Blood Count 4.36 M/mm3 (4.60-6.20); White Blood Count 3.6 K/mm3 (4.8-10.8)
[2024-07-04 06:51] LABS: Hemoglobin 12.6 g/dL (14.1-18.0)
[2024-07-04 07:03] LABS: Alanine Aminotransferase 37 U/L (12-78); Albumin/Globulin Ratio 1.7 (1.1-1.8); Alkaline Phosphatase 87 U/L (38-126); Anion Gap 16.3 mEq/L (5-15); Aspartate Amino Transferase 39 U/L (17-59); Bilirubin,Total 0.3 mg/dl (0.2-1.3); Blood Urea Nitrogen 20 mg/dl (9-20); Calcium 9.6 mg/dl (8.4-10.2); Carbon Dioxide 22 mmol/L (22.0-30.0); Chloride 100 mmol/L (98-107); Creatinine Clearance Estimated 44 mL/min (50-200); Estimated Glomerular Filt Rate 65 ml/min (>60); GFR (African American) 79 ML/MIN (>60); Globulin 2.4 g/dL (1.3-3.2); Glucose 144 mg/dl (74-100); Magnesium 2.2 mg/dl (1.6-2.3); Potassium 4.3 mmoL/L (3.5-5.1); Sodium 134 mmol/L (136-145); Total Protein,Serum 6.4 g/dl (6.3-8.2)
[2024-07-04 07:40] VITALS: BP 121/68; PULSE 106; RESP 16; TEMP 36.6; O2SAT 94
--- NOTE | 2024-07-04 08:07 | EXP.CARD.CON ---
History of Present Illness History of Present Illness Consult date: 07/04/24 Requesting physician: Spring Avendano Chief complaint: abnormal EKG Additional Medical History:: 1. Hypertension, treated for about 10 years 2. COPD, diagnosed this month A. Tobacco use [id number] history 3. Remote CVA with transient right side numbness and right facial droop that resolved after tPA administration History of present illness: 73-year-old white male admitted through the ER for increasing dyspnea over the last 4 days. Recently diagnosed with COPD through his PCP at which time he discontinued smoking. Patient denies any recent chest pain, pressure or tightness. Patient's shortness of breath has improved overnight with breathing treatments and steroids. At this time he is back to normal and anxious to go home. Troponins are normal this admission but his EKG is abnormal showing evidence of left anterior fascicular block with poor R wave progression anteriorly concerning for anterior WI. Cardiology consulted for further evaluation. [facility] Disclaimer: The information contained in this section may have been updated after the patient was seen, as this information can be updated by other users. Medical History (Updated 07/04/24 @ 08:15 by LOKI Byers) COPD (chronic obstructive pulmonary disease) Stroke Hypertension Social History Smoking Status: Current every day smoker tobacco type: cigarettes packs per day: 2 second hand exposure: Yes alcohol intake: never current occupational status: other Travel in the last 8 weeks: None Have you lived/traveled outside [place] in past 30 days?: No Contact w/someone who lives/traveled outside [place] past 30 days?: No Exposure to someone with infectious disease in past 14 days?: No Do you have a fever (greater than 100.4 F or 38 C)?: No Have you tested positive for COVID-19: No Exposed to someone with COVID-19 in past 14 days?: No Do you have a sore throat?: No Do you have a cough?: No Do you have any weakness?: No Do you have any diarrhea?: No Are you experiencing any unusual bleeding?: No Do you have any muscle aches/pain?: No Do you have any abdominal pain?: No Are you experiencing loss of taste or smell?: No Review of Systems Review of Systems Review of systems:: pertinent systems reviewed and negative unless documented below *Cardiovascular Cardiovascular: Denies chest pain, Reports dyspnea and Reports dyspnea on exertion *Respiratory Respiratory: Reports dyspnea and Reports dyspnea on exertion Exam Data for Last 24 hours Vital signs and Labs for Last 24 Hours: Temp Pulse Resp BP Pulse Ox O2 Del Method 98 F 106 H 16 121/68 94 L Room Air 07/04/24 07:40 07/04/24 07:40 07/04/24 07:40 07/04/24 07:40 07/04/24 07:40 07/04/24 07:40 Laboratory Results - last 24 hr 07/03/24 17:25: WBC 8.2, RBC 5.18, Hgb 15.1, Hct 44.6, MCV 86.1, MCH 29.2, MCHC 33.9, RDW 12.1, Plt Count 279, MPV 11.1 H, Neut % (Auto) 58.3, Lymph % (Auto) 18.4, [place] % (Auto) 9.2, Eos % (Auto) 11.6, Baso % (Auto) 2.3 H, Neut # (Auto) 4.8, Lymph # (Auto) 1.5, [place] # (Auto) 0.8, Eos # (Auto) 1.0 H, Baso # (Auto) 0.2, Sodium 135 L, Potassium 4.8, Chloride 99, Carbon Dioxide 26, Anion Gap 14.8, BUN 15, Creatinine 1.00, Estimated Creat Clear 52, Estimated GFR 73, Est GFR ( Amer) 88, Glucose 121 H, Hemoglobin A1c 5.8, Calcium 9.6, Magnesium 1.8, Total Bilirubin 0.8, AST 48, ALT 37, Alkaline Phosphatase 102, Troponin I < 0.01, NT-Pro-B Natriuret Pep 145 H, Total Protein 8.1, Albumin 4.8, Globulin 3.3 H, Albumin/Globulin Ratio 1.5, Triglycerides 81, Cholesterol 158, LDL Cholesterol Direct 83.26 L, VLDL Cholesterol 16, HDL Cholesterol 58, Cholesterol/HDL Ratio 2.7, Procalcitonin 0.038, HCV Ab MICHAEL w/Rflx PCR Qn Negative, HIV Ag/Ab Combo Qual Negative 07/03/24 17:29: VBG pH 7.30 L, VBG pCO2 52.1 H, VBG pO2 41.4 H, VBG HCO3 25.2, VBG Total CO2 26.8, VBG O2 Saturation 70.5 H, VBG Base Excess -1.1, VBG Lactic Acid 1.5 07/03/24 19:11: SARS-CoV-2 (PCR) Not detected, Influenza Type A (PCR) Not detected, Influenza Type B (PCR) Not detected, RSV (PCR) Not detected, Rhinovirus (PCR) Not detected 07/03/24 20:22: Troponin I < 0.01 07/03/24 23:56: Troponin I < 0.01 07/04/24 06:07: WBC 3.6 L D, RBC 4.36 L, Hgb 12.6 L D, Hct 36.6 L, MCV 83.9, MCH 28.9, MCHC 34.4, RDW 12.0, Plt Count 260, MPV 11.2 H, Neut % (Auto) 83.1 H, Lymph % (Auto) 13.2, [place] % (Auto) 3.1, Eos % (Auto) 0.0 L, Baso % (Auto) 0.3, Neut # (Auto) 3.0, Lymph # (Auto) 0.5 L, [place] # (Auto) 0.1, Eos # (Auto) 0.0, Baso # (Auto) 0.0, Sodium 134 L, Potassium 4.3, Chloride 100, Carbon Dioxide 22, Anion Gap 16.3 H, BUN 20 D, Creatinine 1.10, Estimated Creat Clear 44, Estimated GFR 65, Est GFR ( Amer) 79, Glucose 144 H, Calcium 9.6, Magnesium 2.2 D, Total Bilirubin 0.3, AST 39, ALT 37, Alkaline Phosphatase 87, Total Protein 6.4, Albumin 4.0 D, Globulin 2.4, Albumin/Globulin Ratio 1.7 I & O for Last 24 hours: Intake & Output 07/01/24 07/02/24 07/03/24 07/04/24 11:59 11:59 11:59 11:59 Intake Total 250 / 250 Output Total 0 / 0 Balance 250 / 250 Weight 117 lb Constitutional Constitutional: no acute distress *Routine Respiratory Exam Respiratory: Present decreased breath sounds and diminished air movement; Absent rhonchi or wheezes *Routine Cardiovascular Exam Cardiovascular: Present RRR; Absent murmur, gallop or rubs *Routine Extremities Exam Extremities: Absent edema Meds Home Medications and Allergies Home Medications ?Medication ?Instructions ?Recorded ?Confirmed ?Type amlodipine 5 mg-benazepril 20 mg 1 tab PO DAILY 5/20MG 10/22/18 07/03/24 History capsule aspirin 81 mg tablet,delayed 81 mg PO DAILY 10/22/18 07/03/24 History release albuterol sulfate 90 mcg/actuation 2 puff inhalation Q4-6H PRN 06/19/24 07/03/24 Rx aerosol inhaler shortness of breath or wheezing #8.5 grams losartan 25 mg tablet 25 mg PO DAILY 06/30/24 07/03/24 History New Prescriptions to Start Prescriptions: Allergies Allergy/AdvReac Type Severity Reaction Status Date / Time No Known Allergies Allergy Verified 06/30/24 11:14 Assessment and Plan *Assessment and plan (1) Acute exacerbation of chronic obstructive pulmonary disease: Status: Acute Category: Medical Code(s): J44.1 - Chronic obstructive pulmonary disease with (acute) exacerbation (2) Acute hypercapnic respiratory failure: Status: Acute Category: Medical Code(s): J96.02 - Acute respiratory failure with hypercapnia (3) Abnormal EKG: Status: Acute Category: Medical Code(s): R94.31 - Abnormal electrocardiogram [ECG] [EKG] (4) Emphysema lung: Status: Acute Qualifiers: Emphysema type: unspecified Qualified Code(s): J43.9 - Emphysema, unspecified Category: Medical Code(s): J43.9 - Emphysema, unspecified (5) History of CVA (cerebrovascular accident): Status: Acute Category: Medical Code(s): Z86.73 - Personal history of transient ischemic attack (TIA), and cerebral infarction without residual deficits (6) Mild essential hypertension: Status: Acute Category: Medical Code(s): I10 - Essential (primary) hypertension Plan 1. COPD with acute exacerbation -Improved with combination of steroids and breathing treatments -Pulmonary consult pending 2. Abnormal EKG with no prior cardiac history. No old EKGs for comparison -Right atrial enlargement with left anterior fascicular block with possible old anterior septal WI -Echo pending -LDL 83 -Troponins normal 3. Hypertension/HHD -Switch meds as noted below 4. Remote history of CVA status post tPA with no residual effects -Chronic aspirin Echo shows hyperdynamic function with EF 70%. No wall motion abnormalities and no significant valve disease. Will stop amlodipine/benazepril and switch to diltiazem for heart rate/BP control and treatment of hyperdynamic function. Continue losartan 25 mg daily. OK for discharge home from cardiology standpoint. Follow up in 1-2 wks. Home med recs: Losartan 25 mg daily Diltiazem 120 mg daily Atorvastatin 40 mg daily
[2024-07-04] MEDS: predniSONE 20MG TAB 40 MG PO (08:15)
[2024-07-04] MEDS: ENOXAPARIN 40MG/0.4ML SYRINGE 40 MG SUBCUT (08:15)
[2024-07-04 08:57] LABS: Adenovirus,PCR Not Detected (NotDetected); Bordetella Pertussis Not Detected (NotDetected); Chlamydophila Pneumoniae, PCR Not Detected (NotDetected); Coronavirus 19, PCR Not Detected (NotDetected); Coronavirus 229E Not Detected (NotDetected); Coronavirus NL63 Not Detected (NotDetected); Coronavirus OC43 Not Detected (NotDetected); Coronovirus HKU1,PCR Not Detected (NotDetected); Human Metapneumovirus Not Detected (NotDetected); Influenza A, PCR Not Detected (NotDetected); Influenza AH1, 2009 Not Detected (NotDetected); Influenza AH1, PCR Not Detected (NotDetected); Influenza AH3,PCR Not Detected (NotDetected); Influenza B, PCR Not Detected (NotDetected); Mycoplasma Pneumoniae, PCR Not Detected (NotDetected); Parainfluenza 1, PCR Not Detected (NotDetected); Parainfluenza 2, PCR Not Detected (NotDetected); Parainfluenza 3, PCR Not Detected (NotDetected); Parainfluenza 4, PCR Not Detected (NotDetected); Respiratory Syncytial Virus Not Detected (NotDetected); Rhinovirus/Enterovirus Not Detected (NotDetected)
--- NOTE | 2024-07-04 09:38 | EXP.PULM.CON ---
History of Present Illness History of present illness: Mr. Jha is a 73-year-old male current smoker greater than [id number] smoking history carries a diagnosis of COPD not using any long-acting inhaler therapy at baseline, recently initiated albuterol on as-needed basis presented to the ER respiratory distress and pulmonary was called for further evaluation and management [facility] Disclaimer: The information contained in this section may have been updated after the patient was seen, as this information can be updated by other users. Medical History (Updated 07/04/24 @ 08:15 by LOKI Byers) COPD (chronic obstructive pulmonary disease) Stroke Hypertension Social History Smoking Status: Current every day smoker tobacco type: cigarettes packs per day: 2 second hand exposure: Yes alcohol intake: never current occupational status: other Travel in the last 8 weeks: None Review of Systems Constitutional Constitutional: Reports anorexia, Reports body ache(s) and Reports fatigue Eyes Eyes: Denies eye discharge, Denies dry eyes, Denies irritation and Denies itchy eyes ENT Ears, Nose, Mouth, and Throat: Denies epistaxis, Denies facial pain, Denies lip swelling and Denies throat swelling *Cardiovascular Cardiovascular: Reports dyspnea and Reports dyspnea on exertion *Respiratory Respiratory: Reports chest congestion, Reports cough, Reports dyspnea, Reports dyspnea on exertion, Denies excessive phlegm production, Denies hemoptysis, Denies pain on inspiration, Denies pain with cough and Reports wheezing *Gastrointestinal Gastrointestinal: Denies abdominal pain, Denies belching and Denies cramping *Musculoskeletal Musculoskeletal: Reports back pain, Reports myalgias and Reports other (No small joint swelling or Pain) Psychiatric Psychiatric: Denies homicidal ideation and Denies suicidal ideation Endocrine Endocrine: Reports fatigue and Denies heat intolerance Hematologic/Lymphatic Hematologic/Lymphatic: Denies easy bleeding and Denies lymphadenopathy Allergic/Immunologic Allergic/Immunologic: Denies itchy eyes, Denies lip swelling, Denies throat swelling and Reports wheezing Pulmonology Exam Inpatient Vital signs and Labs for Last 24 Hours: Temp Pulse Resp BP Pulse Ox O2 Del Method 98 F 106 H 16 121/68 94 L Room Air 07/04/24 07:40 07/04/24 07:40 07/04/24 07:40 07/04/24 07:40 07/04/24 07:40 07/04/24 09:00 Laboratory Results - last 24 hr 07/03/24 17:25: WBC 8.2, RBC 5.18, Hgb 15.1, Hct 44.6, MCV 86.1, MCH 29.2, MCHC 33.9, RDW 12.1, Plt Count 279, MPV 11.1 H, Neut % (Auto) 58.3, Lymph % (Auto) 18.4, [place] % (Auto) 9.2, Eos % (Auto) 11.6, Baso % (Auto) 2.3 H, Neut # (Auto) 4.8, Lymph # (Auto) 1.5, [place] # (Auto) 0.8, Eos # (Auto) 1.0 H, Baso # (Auto) 0.2, Sodium 135 L, Potassium 4.8, Chloride 99, Carbon Dioxide 26, Anion Gap 14.8, BUN 15, Creatinine 1.00, Estimated Creat Clear 52, Estimated GFR 73, Est GFR ( Amer) 88, Glucose 121 H, Hemoglobin A1c 5.8, Calcium 9.6, Magnesium 1.8, Total Bilirubin 0.8, AST 48, ALT 37, Alkaline Phosphatase 102, Troponin I < 0.01, NT-Pro-B Natriuret Pep 145 H, Total Protein 8.1, Albumin 4.8, Globulin 3.3 H, Albumin/Globulin Ratio 1.5, Triglycerides 81, Cholesterol 158, LDL Cholesterol Direct 83.26 L, VLDL Cholesterol 16, HDL Cholesterol 58, Cholesterol/HDL Ratio 2.7, Procalcitonin 0.038, HCV Ab MICHAEL w/Rflx PCR Qn Negative, HIV Ag/Ab Combo Qual Negative 07/03/24 17:29: VBG pH 7.30 L, VBG pCO2 52.1 H, VBG pO2 41.4 H, VBG HCO3 25.2, VBG Total CO2 26.8, VBG O2 Saturation 70.5 H, VBG Base Excess -1.1, VBG Lactic Acid 1.5 07/03/24 19:11: SARS-CoV-2 (PCR) Not detected, Influenza Type A (PCR) Not detected, Influenza Type B (PCR) Not detected, RSV (PCR) Not detected, Rhinovirus (PCR) Not detected 07/03/24 20:22: Troponin I < 0.01 07/03/24 23:56: Troponin I < 0.01 07/04/24 06:07: WBC 3.6 L D, RBC 4.36 L, Hgb 12.6 L D, Hct 36.6 L, MCV 83.9, MCH 28.9, MCHC 34.4, RDW 12.0, Plt Count 260, MPV 11.2 H, Neut % (Auto) 83.1 H, Lymph % (Auto) 13.2, [place] % (Auto) 3.1, Eos % (Auto) 0.0 L, Baso % (Auto) 0.3, Neut # (Auto) 3.0, Lymph # (Auto) 0.5 L, [place] # (Auto) 0.1, Eos # (Auto) 0.0, Baso # (Auto) 0.0, Sodium 134 L, Potassium 4.3, Chloride 100, Carbon Dioxide 22, Anion Gap 16.3 H, BUN 20 D, Creatinine 1.10, Estimated Creat Clear 44, Estimated GFR 65, Est GFR ( Amer) 79, Glucose 144 H, Calcium 9.6, Magnesium 2.2 D, Total Bilirubin 0.3, AST 39, ALT 37, Alkaline Phosphatase 87, Total Protein 6.4, Albumin 4.0 D, Globulin 2.4, Albumin/Globulin Ratio 1.7 I & O for Labs for Last 24 Hours: Intake & Output 07/01/24 07/02/24 07/03/24 07/04/24 23:59 23:59 23:59 23:59 Intake Total 530 / 530 Output Total Balance 529 / 529 Weight 117 lb 117 lb Constitutional: Present mild distress Head: Present normocephalic and atraumatic ENT: Present normal exam, normal oropharynx and mucous membranes moist Neck: Present normal inspection and full ROM Respiratory: Present prolonged expiratory phase and able to speak in complete sentences; Absent respiratory distress, wheezes or diminished air movement Cardiac: Present S1/S2, Tachycardia and radial pulses present GI: Present soft and distention; Absent tenderness or guarding Skin: Present intact; Absent cyanosis or jaundice Neuro: Present alert, awake and oriented x 3 Extremities: Present normal inspection; Absent clubbing or cyanosis Psychiatric: Present normal affect and cooperative Meds Home Medications and Allergies Home Medications ?Medication ?Instructions ?Recorded ?Confirmed ?Type aspirin 81 mg tablet,delayed 81 mg PO DAILY 10/22/18 07/03/24 History release albuterol sulfate 90 mcg/actuation 2 puff inhalation Q4-6H PRN 06/19/24 07/03/24 Rx aerosol inhaler shortness of breath or wheezing #8.5 grams losartan 25 mg tablet 25 mg PO DAILY 06/30/24 07/03/24 History atorvastatin 40 mg tablet 40 mg PO HS 30 days #30 tabs 07/04/24 Rx diltiazem HCl 120 mg 120 mg PO DAILY 30 days #30 caps 07/04/24 Rx capsule,extended release 24 hr fluticasone fur. 100 mcg-umeclid 1 inh inhalation DAILY 1 day #0 ea 07/04/24 Rx 62.5 mcg-vilant 25 mcg inhalat.powder (Trelegy Ellipta) prednisone 20 mg tablet 40 mg (2 x 20 mg) PO DAILY 3 days 07/04/24 Rx #6 tabs New Prescriptions to Start Prescriptions: Mundo Harrison diltiazem HCl Mundo Dave prednisone Mundo Dave Allergies Allergy/AdvReac Type Severity Reaction Status Date / Time No Known Allergies Allergy Verified 06/30/24 11:14 Results Laboratory Findings 07/04/24 06:07 07/04/24 06:07 Abnormal lab findings: Abnormal Labs 07/03/24 07/03/24 07/04/24 17:25 17:29 06:07 WBC 3.6 L D RBC 4.36 L Hgb 12.6 L D Hct 36.6 L MPV 11.1 H 11.2 H Neut % (Auto) 83.1 H Eos % (Auto) 0.0 L Baso % (Auto) 2.3 H Lymph # (Auto) 0.5 L Eos # (Auto) 1.0 H VBG pH 7.30 L VBG pCO2 52.1 H VBG pO2 41.4 H VBG O2 Saturation 70.5 H Sodium 135 L 134 L Anion Gap 16.3 H Glucose 121 H 144 H NT-Pro-B Natriuret Pep 145 H Globulin 3.3 H LDL Cholesterol Direct 83.26 L Assessment and Plan *Assessment and plan (1) Acute exacerbation of chronic obstructive pulmonary disease: Status: Acute Category: Medical Code(s): J44.1 - Chronic obstructive pulmonary disease with (acute) exacerbation Plan Mr. Jha is a 73-year-old male current smoker greater than [id number] smoking history carries a diagnosis of COPD not using any long-acting inhaler therapy at baseline, recently initiated albuterol on as-needed basis presented to the ER respiratory distress and pulmonary was called for further evaluation and management Chest x-ray upon admission hyperinflated lungs with flattened diaphragms. No evidence of airspace disease/effusions noted. COVID-19 flu and RSV PCR panel negative. Hemodynamically stable. Mild respiratory distress. No significant wheezing. On room air saturating 94%. Plan: Initiate Trelegy 100 inhaler along with DuoNebs 4 times daily as needed. 6-minute walk testing prior to discharge Prednisone 40 mg daily x 5 days Will hold off on initiating antibiotics at this point of the time. # Thank you for involving pulmonary in this patient care. Follow in pulmonary clinic 1 to 2 weeks post discharge
[2024-07-04] MEDS: FLUTICASONE/UMECLIDIN/VILANTER 100/62.5/25MCG INHALER 1 PUFF IH (10:50)
[2024-07-04] MEDS: ALBUTEROL-HFA 90MCG/PUFF INHALER 8GM 2 PUFF IH (10:50)
[2024-07-04] MEDS: AEROCHAMBER/OPTIHALER MC (10:51)
[2024-07-04] MEDS: dilTIAZem ER 120MG CAPSULE 120 MG PO (11:20)
--- NOTE | 2024-07-04 11:32 | P.DS_ITS ---
General Admission date:: 07/03/24 HPI HPI HPI: Patient presents for evaluation of dyspnea. Patient states that 4 days ago he went to see his PCP for shortness of breath. He was diagnosed with COPD for the first time. Patient was a smoker up until then. has not smoked since then He reports that he was given a rescue inhaler which she has been utilizing. It helped at first but has stopped being beneficial. He reports significant dyspnea at rest and on exertion. He denies any fever chills hemoptysis hematochezia melena nausea vomiting diarrhea or chest pain. In ER given continuous breathing treatment with cimprovement of symptoms after a few hours. Also recieved steroids and athythromycin. Denies chest pains currently HAs had a stroke in the past. unknown eitiology. Does not take any medications Hospital Course Hospital Course Hospital Course: Hunter Jha is a 73-year-old male with a history of COPD who was admitted for COPD exacerbation. #COPD exacerbation ? Clinically improved with DuoNebs, Pulmicort, steroids, antibiotic. ? Pulmonology consulted, started Trelegy 100 inhaler. ? Saturating 94% on room air. ? Discharged with Trelegy 100, prednisone 40 mg for 3 more days. ? Will follow-up with pulmonology within 2 weeks. #Hypertension #Left anterior fascicular block on EKG ? ECHO revealed hyperdynamic left ventricular function, 70% ejection fraction. ? Cardiology consulted, started diltiazem 120 mg, stopped amlodipine/benazepril. ? Continue losartan 25 mg. ? Follow-up with cardiology within 2 weeks. #History of CVA ? Aspirin, statin. Exam Data for Last 24 hours Vital signs and Labs for Last 24 Hours: Temp Pulse Resp BP Pulse Ox O2 Del Method 98 F 106 H 16 121/68 94 L Room Air 07/04/24 07:40 07/04/24 07:40 07/04/24 07:40 07/04/24 07:40 07/04/24 07:40 07/04/24 09:00 Laboratory Results - last 24 hr 07/03/24 17:25: WBC 8.2, RBC 5.18, Hgb 15.1, Hct 44.6, MCV 86.1, MCH 29.2, MCHC 33.9, RDW 12.1, Plt Count 279, MPV 11.1 H, Neut % (Auto) 58.3, Lymph % (Auto) 18.4, [place] % (Auto) 9.2, Eos % (Auto) 11.6, Baso % (Auto) 2.3 H, Neut # (Auto) 4.8, Lymph # (Auto) 1.5, [place] # (Auto) 0.8, Eos # (Auto) 1.0 H, Baso # (Auto) 0.2, Sodium 135 L, Potassium 4.8, Chloride 99, Carbon Dioxide 26, Anion Gap 14.8, BUN 15, Creatinine 1.00, Estimated Creat Clear 52, Estimated GFR 73, Est GFR ( Amer) 88, Glucose 121 H, Hemoglobin A1c 5.8, Calcium 9.6, Magnesium 1.8, Total Bilirubin 0.8, AST 48, ALT 37, Alkaline Phosphatase 102, Troponin I < 0.01, NT-Pro-B Natriuret Pep 145 H, Total Protein 8.1, Albumin 4.8, Globulin 3.3 H, Albumin/Globulin Ratio 1.5, Triglycerides 81, Cholesterol 158, LDL Cholesterol Direct 83.26 L, VLDL Cholesterol 16, HDL Cholesterol 58, [place] rol/HDL Ratio 2.7, Procalcitonin 0.038, HCV Ab MICHAEL w/Rflx PCR Qn Negative, HIV Ag/Ab Combo Qual Negative 07/03/24 17:29: VBG pH 7.30 L, VBG pCO2 52.1 H, VBG pO2 41.4 H, VBG HCO3 25.2, VBG Total CO2 26.8, VBG O2 Saturation 70.5 H, VBG Base Excess -1.1, VBG Lactic Acid 1.5 07/03/24 19:11: SARS-CoV-2 (PCR) Not detected, Influenza Type A (PCR) Not detected, Influenza Type B (PCR) Not detected, RSV (PCR) Not detected, Rhinovirus (PCR) Not detected 07/03/24 20:22: Troponin I < 0.01 07/03/24 23:56: Troponin I < 0.01 07/04/24 06:07: WBC 3.6 L D, RBC 4.36 L, Hgb 12.6 L D, Hct 36.6 L, MCV 83.9, MCH 28.9, MCHC 34.4, RDW 12.0, Plt Count 260, MPV 11.2 H, Neut % (Auto) 83.1 H, Lymph % (Auto) 13.2, [place] % (Auto) 3.1, Eos % (Auto) 0.0 L, Baso % (Auto) 0.3, Neut # (Auto) 3.0, Lymph # (Auto) 0.5 L, [place] # (Auto) 0.1, Eos # (Auto) 0.0, Baso # (Auto) 0.0, Sodium 134 L, Potassium 4.3, Chloride 100, Carbon Dioxide 22, Anion Gap 16.3 H, BUN 20 D, Creatinine 1.10, Estimated Creat Clear 44, Estimated GFR 65, Est GFR ( Amer) 79, Glucose 144 H, Calcium 9.6, Magnesium 2.2 D, Total Bilirubin 0.3, AST 39, ALT 37, Alkaline Phosphatase 87, Total Protein 6.4, Albumin 4.0 D, Globulin 2.4, Albumin/Globulin Ratio 1.7 I & O for Last 24 hours: Intake & Output 07/01/24 07/02/24 07/03/24 07/04/24 23:59 23:59 23:59 23:59 Intake Total 530 / 530 Output Total Balance 529 / 529 Weight 53.07 kg 53.07 kg Constitutional Constitutional: no acute distress *Routine HEENT Exam Head: Present normocephalic Eye: Present EOMI and PERRL ENT: Present mucous membranes moist *Routine Neck Exam Neck: Present supple; Absent lymphadenopathy *Routine Respiratory Exam Respiratory: Present CTA bilaterally *Routine Cardiovascular Exam Cardiovascular: Present RRR *Routine Abdominal Exam Abdominal: Present soft and normoactive bowel sounds; Absent tenderness *Routine Extremities Exam Extremities: Absent cyanosis, clubbing or edema *Routine Skin Exam Skin: Present warm; Absent rash *Routine Neurological Exam Neurological: Present alert and oriented X3 Results Data Completed and Pending Labs on day of discharge: Labs from last 24 hours 07/04/24 07/03/24 07/03/24 06:07 23:56 20:22 WBC 3.6 L D RBC 4.36 L Hgb 12.6 L D Hct 36.6 L MCV 83.9 MCH 28.9 MCHC 34.4 RDW 12.0 Plt Count 260 MPV 11.2 H Neut % (Auto) 83.1 H Lymph % (Auto) 13.2 [place] % (Auto) 3.1 Eos % (Auto) 0.0 L Baso % (Auto) 0.3 Neut # (Auto) 3.0 Lymph # (Auto) 0.5 L [place] # (Auto) 0.1 Eos # (Auto) 0.0 Baso # (Auto) 0.0 VBG pH VBG pCO2 VBG pO2 VBG HCO3 VBG Total CO2 VBG O2 Saturation VBG Base Excess VBG Lactic Acid Sodium 134 L Potassium 4.3 Chloride 100 Carbon Dioxide 22 Anion Gap 16.3 H BUN 20 D Creatinine 1.10 Estimated Creat Clear 44 Estimated GFR 65 Est GFR ( Amer) 79 Glucose 144 H Hemoglobin A1c Calcium 9.6 Magnesium 2.2 D Total Bilirubin 0.3 AST 39 ALT 37 Alkaline Phosphatase 87 Troponin I < 0.01 < 0.01 NT-Pro-B Natriuret Pep Total Protein 6.4 Albumin 4.0 D Globulin 2.4 Albumin/Globulin Ratio 1.7 Triglycerides Cholesterol LDL Cholesterol Direct VLDL Cholesterol HDL Cholesterol Cholesterol/HDL Ratio Procalcitonin SARS-CoV-2 (PCR) HCV Ab MICHAEL w/Rflx PCR Qn HIV Ag/Ab Combo Qual Influenza Type A (PCR) Influenza Type B (PCR) RSV (PCR) Rhinovirus (PCR) 07/03/24 07/03/24 07/03/24 19:11 17:29 17:25 WBC 8.2 RBC 5.18 Hgb 15.1 Hct 44.6 MCV 86.1 MCH 29.2 MCHC 33.9 RDW 12.1 Plt Count 279 MPV 11.1 H Neut % (Auto) 58.3 Lymph % (Auto) 18.4 [place] % (Auto) 9.2 Eos % (Auto) 11.6 Baso % (Auto) 2.3 H Neut # (Auto) 4.8 Lymph # (Auto) 1.5 [place] # (Auto) 0.8 Eos # (Auto) 1.0 H Baso # (Auto) 0.2 VBG pH 7.30 L VBG pCO2 52.1 H VBG pO2 41.4 H VBG HCO3 25.2 VBG Total CO2 26.8 VBG O2 Saturation 70.5 H VBG Base Excess -1.1 VBG Lactic Acid 1.5 Sodium 135 L Potassium 4.8 Chloride 99 Carbon Dioxide 26 Anion Gap 14.8 BUN 15 Creatinine 1.00 Estimated Creat Clear 52 Estimated GFR 73 Est GFR ( Amer) 88 Glucose 121 H Hemoglobin A1c 5.8 Calcium 9.6 Magnesium 1.8 Total Bilirubin 0.8 AST 48 ALT 37 Alkaline Phosphatase 102 Troponin I < 0.01 NT-Pro-B Natriuret Pep 145 H Total Protein 8.1 Albumin 4.8 Globulin 3.3 H Albumin/Globulin Ratio 1.5 Triglycerides 81 Cholesterol 158 LDL Cholesterol Direct 83.26 L VLDL Cholesterol 16 HDL Cholesterol 58 Cholesterol/HDL Ratio 2.7 Procalcitonin 0.038 SARS-CoV-2 (PCR) Not detected HCV Ab MICHAEL w/Rflx PCR Qn Negative HIV Ag/Ab Combo Qual Negative Influenza Type A (PCR) Not detected Influenza Type B (PCR) Not detected RSV (PCR) Not detected Rhinovirus (PCR) Not detected DS: Diagnosis Discharge Diagnosis (1) Acute exacerbation of chronic obstructive pulmonary disease: Status: Acute Code(s): J44.1 - Chronic obstructive pulmonary disease with (acute) exacerbation (2) Acute hypercapnic respiratory failure: Status: Acute Code(s): J96.02 - Acute respiratory failure with hypercapnia (3) Abnormal EKG: Status: Acute Code(s): R94.31 - Abnormal electrocardiogram [ECG] [EKG] (4) Emphysema lung: Status: Acute Code(s): J43.9 - Emphysema, unspecified Qualifiers: Emphysema type: unspecified Qualified Code(s): J43.9 - Emphysema, unspecified (5) History of CVA (cerebrovascular accident): Status: Acute Code(s): Z86.73 - Personal history of transient ischemic attack (TIA), and cerebral infarction without residual deficits (6) Mild essential hypertension: Status: Acute Code(s): I10 - Essential (primary) hypertension Meds Home Medications and Allergies Home Medications ?Medication ?Instructions ?Recorded ?Confirmed ?Type aspirin 81 mg tablet,delayed 81 mg PO DAILY 10/22/18 07/03/24 History release albuterol sulfate 90 mcg/actuation 2 puff inhalation Q4-6H PRN 06/19/24 07/03/24 Rx aerosol inhaler shortness of breath or wheezing #8.5 grams losartan 25 mg tablet 25 mg PO DAILY 06/30/24 07/03/24 History atorvastatin 40 mg tablet 40 mg PO HS 30 days #30 tabs 07/04/24 Rx diltiazem HCl 120 mg 120 mg PO DAILY 30 days #30 caps 07/04/24 Rx capsule,extended release 24 hr fluticasone fur. 100 mcg-umeclid 1 inh inhalation DAILY 1 day #0 ea 07/04/24 Rx 62.5 mcg-vilant 25 mcg inhalat.powder (Trelegy Ellipta) prednisone 20 mg tablet 40 mg (2 x 20 mg) PO DAILY 3 days 07/04/24 Rx #6 tabs New Prescriptions to Start Prescriptions: atorvastatin [place] diltiazem HCl [place] prednisone [place] Allergies Allergy/AdvReac Type Severity Reaction Status Date / Time No Known Allergies Allergy Verified 06/30/24 11:14 Discharge Plan Disposition Patient Disposition: Home, Self-Care Condition: Fair Follow up Plan Follow up with: Phong Naranjo PA [Physician Continuity Coordinator] - 07/17/24 10:00 am Julian Reynaga MD [Primary Care Provider] - 07/12/24 11:00 am Herbert Carter MD [Physician] - 07/20/24 1:00 pm Prescriptions/Medication Reconciliation: New atorvastatin 40 mg Tablet 40 mg PO HS 30 Days Qty: 30 0RF prednisone 20 mg Tablet 40 mg PO DAILY 3 Days Qty: 6 0RF diltiazem HCl 120 mg Capsule,Extended Release 24hr 120 mg PO DAILY 30 Days Qty: 30 0RF Trelegy Ellipta 100-62.5-25 mcg Blister With Device 1 inh inhalation DAILY 1 Days Qty: 0 0RF Continued losartan 25 mg tablet 25 mg PO DAILY Patient Comments: TAKE 1 TABLET 1 TIME EACH DAY albuterol sulfate 90 mcg/actuation HFA aerosol inhaler 2 puff inhalation Q4-6H PRN (Reason: shortness of breath or wheezing) Qty: 8.5 2RF aspirin 81 MG tablet,delayed release (DR/EC) 81 mg PO DAILY Discontinued amlodipine-benazepril 1 EACH capsule 1 tab PO DAILY Problem Reconciliation Problems Reviewed?: Yes Patient Discharge Instructions Patient Instructions: DI for Chronic Obstructive Pulmonary Disease Print Language: Japanese Providers Primary Care Provider: Julian Reynaga Admit Provider: Gerhard Vogt Attending Provider: Gerhard Vogt
--- NOTE | 2024-07-04 12:28 | PC.NURSE ---
walk test done by RT. pt walked 1000 ft with an o2 of 92%. so complaints of soa
--- NOTE | 2024-07-04 21:31 | CA_ITS ---
APPROVED REPORT EXAM: Comprehensive 2D, Doppler, and color-flow Echocardiogram Training Systems Officer: Domi Reaves CRT Ht: 5 ft 10 in Wt: 117lbs BSA: 1.66 BP: 131/80 mmHg Indications: COPD, Shortness of Breath, Hypertension/HDD, hx cva, quit smoking recently TDE lung interference 2D Dimensions LA Volume 15.80 mL LA Volume Index 9.30 mL/m2 (M/F) 16-34 M-Mode Dimensions RVDd 2.23 cm (0.9-2.6) LVDd 3.31 cm (3.5-5.7) LVDs 1.91 cm (3.5-5.7) IVSd 0.92 cm (0.6-1.1) PWd 0.54 cm (0.6-1.1) EF (Teich) 74.60% FS 42.30% EDV (Teich) 44.50 mL TAPSE 2.21 (<1.7) ESV (Teich) 11.30 mL LV Diastology E Decel Time 100 (160-240 msec) E/A Ratio 0.70 MED A' 11.60 cm/s LAT A' 12.90 cm/s Aortic Valve AMBER Index 1.21 cm2/m2 AoV Peak Abram. 200.0 (50-130 cm/s) AO Peak GR. 15.90 mmHg AO Mean GR. 7.60 (<5 mmHg) AO VTI 25.2 (18-25 cm) AMBER (VTI) 2.06 (2.5-4.5 cm2) Mitral Valve MV A Velocity 107.0 (40-130 cm/s) E/A Ratio 0.70 Tricuspid Valve TR P. Velocity 244.00 cm/s RAP Estimate 10.00 mmHg RVSP 33.80 mmHg Left Ventricle The left ventricle is normal size. The left ventricular systolic function is hyperdynamic. There is increased LV wall thickness. There are no regional wall motion abnormalities noted. Diastolic function is indeterminate. LVEF is 70%. Right Ventricle The right ventricle is normal size. The right ventricular systolic function is normal. Atria The left atrium size is normal. The right atrium size is normal. There is no Doppler evidence of interatrial shunt. Aortic Valve Aortic valve is mildly thickened. There is no hemodynamically significant aortic stenosis. No aortic regurgitation is present. Mitral Valve The mitral valve is normal in structure. No evidence of mitral valve stenosis. There is no mitral valve regurgitation noted. Tricuspid Valve Tricuspid valve is grossly normal in structure and function. Trace tricuspid regurgitation. There is insufficient TR jet to estimate RVSP. Pulmonic Valve The pulmonary valve is normal in structure. Trace pulmonic regurgitation. Great Vessels Aortic root is not well-visualized. IVC is normal in size and collapses >50% with inspiration. Pericardium There is no pericardial effusion. Other Information Study Quality: Fair Conclusion Hyperdynamic LV systolic function (LVEF 70%). No significant valvular stenosis or regurgitation. Electronically signed by : Jennifer Andino MD 07/04/2024 10:14:52
--- NOTE | 2024-07-06 10:48 | SW/DCPLANNER ---
Spoke with patient on the phone. Patient stated that he is feeling fine. Patient stated that he was able to get his new medicine from [facility]. Patient stated that he is aware of his upcoming appointments. Patient stated that he has no concerns or questions at this time. Patient stated that he was treated good and everyone was so nice and caring. Carlos Donaldson
== END 2024-07-04 12:42 | disposition home or self-care (01) ==
LOC: ER 20:38 → 2ND 20:50
PROVIDERS: Physician Assistant; Student in an Organized Health Care Education/Training Program; Admitting Provider Internal Medicine Adolescent Medicine; Emergency Provider Emergency Medicine; PCP Family Medicine; Visit Provider Internal Medicine Adolescent Medicine
DX: J44.1 Chronic obstructive pulmonary disease with (acute) exacerbation (principal); R05.9 Cough, unspecified; I10 Essential (primary) hypertension; R94.31 Abnormal electrocardiogram [ECG] [EKG]; J43.9 Emphysema, unspecified; F17.210 Nicotine dependence, cigarettes, uncomplicated; Z79.899 Other long term (current) drug therapy; Z86.73 Personal history of transient ischemic attack (TIA), and cerebral infarction without residual deficits; J96.02 Acute respiratory failure with hypercapnia
CPT/HCPCS: 36415; 71046; 76705; 80053; 80061; 82803; 83036; 83735; 83880; 84145; 84484; 85025; 86803; 87389; 87631; 87633; 93005; 93306; 94640; 99291; G0378; J0456; J1650; J2919; J3475; J7050; J7613; J7620

== ENCOUNTER 2024-08-30 07:25 | Outpatient (CLI) | payer MEDICARE, SELFPAY ==
--- NOTE | 2024-08-30 | CA_ITS ---
APPROVED REPORT Exam: Pharmacologic Technologist: Yelena Singleton Ht: 5 ft 10 in Wt: 128 lbs BSA: 1.73 m2 HR: 63 bpm BP: 140/75 mmHg Stress Test Details Test: Lexiscan HR Resting HR: 63 bpm Max Heart Rate (APMHR): 146.861102 bpm Max HR Achieved: 87 bpm Target HR (85% APMHR): 124.172435 bpm % of APMHR: 59.59 Recovery HR: 75 bpm BP Resting BP: 140.0/75.0 mmHg Max BP: 160.0/78.0 mmHg Recovery BP: 157.0/76.0 mmHg ECG Resting ECG: Normal sinus rhythm, PRWP Anteriorly Stress ECG Conclusion Symptoms: None Arrhythmias/Ectopy: None ST-T Changes: < 1.[address] segment changes. Conclusion: Non-diagnostic Lexiscan stress test. Electronically signed by : Jennifer Andino MD 08/31/2024 12:03:55
--- NOTE | 2024-08-30 07:25 | NM_ITS ---
APPROVED REPORT Exam: Nuclear Stress Test Indication: htn, sob, abn ekg Patient Location: Outpatient Stress Tech: Yelena Singleton SC Tech:Jaci Montoya ALLEY RT (R)(N)(M) Ht: 5 ft 10 in Wt: 128 lbs HR: 64 bpm BP: 140/75 mmHg BSA: 1.73 m2 TID: 1.01 BMI: 18.3 History: htn, sob, abn ekg Procedure: Patient received 0.4 mg of intravenous Lexiscan, resting heart rate 64 bpm, resting blood pressure 49420/ mmHg, with Lexiscan maximum heart rate achieved was 90 bpm which is % of the maximum predicted heart rate and blood pressure was 147/76 mmHg. With Lexiscan, patient denied any complaint of chest pain. Cardiac Stress and Resting SPECT Images: Cardiac Stress and Resting SPECT images were obtained using technetium 99m Myoview 30.9 mCi stress and 10.43 mCi at rest. Resting and stress imaging in supine and prone positions demonstrate a medium-sized, moderate, partially reversible perfusion defect in the inferior and inferoseptal LV cavanaugh. Gated imaging demonstrates normal global LV systolic function. LVEF is calculated at 63%. Conclusion: Medium-sized, moderate, partially reversible perfusion defect in the inferior and inferoseptal LV cavanaugh. Findings are suggestive of partial reversible ischemia. Gated imaging demonstrates normal global LV systolic function. LVEF is calculated at 63%. Electronically signed by : Jennifer Andino MD 08/31/2024 12:20:18
[2024-08-30] MEDS: SODIUM CHLORIDE 0.9% 10ML SYR (RAD ONLY) 10 ML IV ×2 (07:35→09:15)
[2024-08-30] MEDS: REGADENOSON 0.4MG/5ML SYRINGE 0.4 MG IV (09:15)
[2024-08-30] MEDS: ISOTOPE MYOVIEW (PER STUDY) 1 DOSE IV (10:02)
== END 2024-08-30 23:59 | disposition home or self-care (01) ==
PROVIDERS: PCP Family Medicine; Visit Provider Nurse Practitioner Family
DX: R94.31 Abnormal electrocardiogram [ECG] [EKG] (principal); R06.09 Other forms of dyspnea
CPT/HCPCS: 78452; 93017; 93018; A9502; J2785

== ENCOUNTER 2024-10-10 07:51 | Day surgery (SDC) | payer MEDICARE, SELFPAY ==
[2024-10-10] VITALS (13 sets, daily range): BP systolic 100–159; BP diastolic 52–79; PULSE 44–62; RESP 14–20; TEMP 36.9; O2SAT 96–100; BMI 18.6
--- NOTE | 2024-10-10 06:55 | IR_ITS ---
APPROVED REPORT Patient Location: Outpatient Rand Tacker: ALLEY Church RT (R) PROCEDURES Left heart catheterization Left ventriculogram Selective coronary angiogram INDICATION Abnormal Myoview, Angina pectoris Informed consent was obtained prior to the procedure. COMPLICATIONS NONE Estimated Blood Loss: LESS THAN 10 ML TECHNIQUE One percent lidocaine used to anesthetize the right anterior aspect of the wrist. The right radial artery was accessed via the Seldinger technique. A 6 [place] sheath was placed in the right radial artery. 2.5 mg of Verapamil, 800 mcg of nitroglycerin, 1mg Lidocaine and 5000 U Heparin were given through the arterial sheath. The JL 3 6 [place] guide catheter was also used to perform left heart catheterization, left ventriculogram and selective coronary angiogram. At the end of the procedure the sheath was removed good hemostasis was achieved using Traclet band, patient was transferred to the postop holding area in stable condition. ANGIOGRAPHIC RESULTS The left main artery Normal The left anterior descending artery Proximally normal with mid vessel 30 to 40% stenosis The circumflex artery Large dominant with a proximal eccentric 30% plaque with remaining vessel having mild 10% luminal regularities The right coronary artery Nondominant and normal The HELMS ventriculogram reveals Normal 65% The left ventricular end-diastolic pressure 10 mmHg IMPRESSION Mild to moderate mid LAD disease Mild to moderate focal eccentric proximal dominant circumflex artery disease Normal ejection fraction Normal LVEDP PLAN 1. Medical management with aggressive risk factor modification 2. LDL less than 55 achieved with high intensity statin 3. Avoidance of tobacco products 4. Risk factor modification Electronically signed by : Gabo Avendano MD 10/10/2024 13:31:01
[2024-10-10 08:30] LABS: Basophils # 0.1 K/mm3 (0-0.2); Basophils % 1.9 % (0.1-2.0); Eosinophils # 0.5 Kmm3 (0.0-0.4); Eosinophils % 7.3 % (0.1-12.0); Hematocrit 39.3 % (42.0-52.0); Lymphocytes # 1.4 K/mm3 (0.7-4.5); Lymphocytes % 20.3 % (10-50); Mean Corpuscular HGB Conc 33.1 g/dL (31.8-35.4); Mean Corpuscular Hemoglobin 29.3 pg (27.0-31.2); Mean Corpuscular Volume 88.7 fl (80-94); Mean Platelet Volume 10.4 fl (7.4-10.4); Monocytes # 0.7 K/mm3 (0.1-1.0); Monocytes % 9.4 % (1.7-9.3); Neutrophils # 4.3 K/mm3 (1.8-7.8); Neutrophils % 60.8 % (37.0-80.0); Nucleated Red Blood Cells # 0 10^3/uL; Nucleated Red Blood Cells % 0 %; Platelet Count 319 K/mm3 (142-424); Red Blood Count 4.43 M/mm3 (4.60-6.20); Red Cell Distribution Width 12.5 % (11.5-17.5); Red Cell Distribution Width-SD 40.8 fL
[2024-10-10 08:57] LABS: Anion Gap 9.9 mEq/L (5-15); Blood Urea Nitrogen 10 mg/dl (9-20); Calcium 9.9 mg/dl (8.4-10.2); Carbon Dioxide 26 mmol/L (22.0-30.0); Chloride 105 mmol/L (98-107); Creatinine Clearance Estimated 44 mL/min (50-200); Estimated Glomerular Filt Rate 59 ml/min (>60); GFR (African American) 71 ML/MIN (>60); Glucose 108 mg/dl (74-100); Potassium 3.9 mmoL/L (3.5-5.1); Sodium 137 mmol/L (136-145)
[2024-10-10] MEDS: 0.9 % SODIUM CHLORIDE 500 ML 25 ML IV (09:32)
[2024-10-10] MEDS: LIDOCAINE 1% 10ML MDV 10 ML IJ (09:32)
[2024-10-10] MEDS: VERAPAMIL 2.5MG/ML 2ML VIAL 2.5 MG IV (09:32)
[2024-10-10] MEDS: HEPARIN 1,000 UNITS/ML 10ML VIAL (CATH LAB) 5000 UNIT IV (09:32)
[2024-10-10] MEDS: NITROGLYCERIN 800MCG/8ML SYR (CATH LAB) 800 MCG IA (09:33)
[2024-10-10] MEDS: diphenhydrAMINE 50MG/ML VIAL 50 MG IV (09:33)
[2024-10-10] MEDS: HEPARIN 1,000 UNITS/500ML NS (CATH LAB) 3000 UNIT IV (09:33)
[2024-10-10] MEDS: MIDAZOLAM HCL 1MG/ML 5ML VIAL 1 MG IV (10:00)
[2024-10-10] MEDS: FENTANYL 100MCG/2ML VIAL 50 MCG IV (10:01)
[2024-10-10] MEDS: IOPAMIDOL-370 (76%);100ML BOTTLE 50 ML IV (14:01)
== END 2024-10-10 13:00 | disposition home or self-care (01) ==
PROVIDERS: PCP Family Medicine; Visit Provider Internal Medicine
PROC: 4A023N7 Measurement of Cardiac Sampling and Pressure, Left Heart, Percutaneous Approach (ICD-10-PCS; CPT 93452; principal; 2024-10-10 07:30)
DX: R93.1 Abnormal findings on diagnostic imaging of heart and coronary circulation (principal); R06.09 Other forms of dyspnea; I20.89 Other forms of angina pectoris; E78.5 Hyperlipidemia, unspecified; F17.210 Nicotine dependence, cigarettes, uncomplicated; R94.31 Abnormal electrocardiogram [ECG] [EKG]; I10 Essential (primary) hypertension; J44.9 Chronic obstructive pulmonary disease, unspecified; Z79.82 Long term (current) use of aspirin; Z79.899 Other long term (current) drug therapy; Z79.51 Long term (current) use of inhaled steroids; Z86.2 Personal history of diseases of the blood and blood-forming organs and certain disorders involving the immune mechanism; Z86.73 Personal history of transient ischemic attack (TIA), and cerebral infarction without residual deficits
CPT/HCPCS: 80048; 85025; 93452; 99152; C1725; C1769; J1200; J1644; J3010; Q9967

== ENCOUNTER 2024-10-23 07:26 | Outpatient (CLI) | payer MEDICARE, SELFPAY ==
--- NOTE | 2024-10-23 07:30 | CT_ITS ---
FINAL REPORT TECHNIQUE: Axial CT images of the chest were obtained without contrast. Low-dose protocol was utilized. This study was performed with techniques to keep radiation doses as low as reasonably achievable (ALARA). Individualized dose reduction techniques using automated exposure control or adjustment of mA and/or kV according to the patient's size were employed. CLINICAL HISTORY: Lung cancer screening former smoker. quit 30 years ago. smoked 1ppd for 30 years. COMPARISON: None FINDINGS: CT CHEST WITHOUT, LOW DOSE SCREENING CTDl vol(mGy): 2.90 DLP (mGy-cm): 110.20 There is no axillary adenopathy. There is no hilar or mediastinal adenopathy. The heart size is normal. There are dense coronary artery calcifications. There is no pericardial or pleural effusion. Lung window images demonstrate scarring in the lingula. There is a benign-appearing cyst posterior to the left kidney measuring 3.3 x 2.5 cm. Limited images of the upper abdomen are unremarkable. IMPRESSION: Lung RADS category 1S. Modifier S: Coronary artery calcifications. Recommend 12 month follow-up low-dose chest CT per Fleischner criteria. Reviewed, Interpreted and Dictated by Michael Waite MD Transcribed by Treasure Juares Authenticated and [facility]
[2024-10-23 08:43] VITALS: PULSE 60; PULSE 67
[2024-10-23] MEDS: ALBUTEROL 0.083% 2.5 MG/3 ML NEB IH (08:43)
== END 2024-10-23 23:59 | disposition home or self-care (01) ==
LOC: RAD 07:27
PROVIDERS: PCP Family Medicine; Visit Provider Internal Medicine Pulmonary Disease
DX: I25.10 Atherosclerotic heart disease of native coronary artery without angina pectoris (principal); J44.9 Chronic obstructive pulmonary disease, unspecified; F17.210 Nicotine dependence, cigarettes, uncomplicated; R91.8 Other nonspecific abnormal finding of lung field; Z12.2 Encounter for screening for malignant neoplasm of respiratory organs
CPT/HCPCS: 71271; 94060; 94618; 94640; 94726; 94729

== ENCOUNTER 2024-10-29 12:36 | Emergency (ER) | payer MEDICARE, SELFPAY ==
--- NOTE | 2024-10-29 12:39 | ED_ITS ---
<Statement entered by Hattie Birmingham DO - 10/30/24 15:54> I was consulted by the GENIA, and we discussed the complexity of the problems being addressed. I approved the treatment and management plan for this patient's care in the emergency department, thus performing a substantive portion of the medical decision making. Hattie Birmingham DO Discharge Plan Disposition Patient Disposition: Home, Self-Care Condition: Good Prescriptions Prescriptions: New doxycycline hyclate 100 mg capsule 100 mg PO BID 10 Days Qty: 20 0RF prednisone 50 mg tablet 50 mg PO DAILY 5 Days Qty: 5 0RF No Action diltiazem HCl 120 mg capsule,extended release 24hr 120 mg PO DAILY 30 Days Qty: 30 6RF losartan 25 mg tablet 25 mg PO DAILY Patient Comments: TAKE 1 TABLET 1 TIME EACH DAY albuterol sulfate 90 mcg/actuation HFA aerosol inhaler 2 puff inhalation Q4-6H PRN (Reason: shortness of breath or wheezing) Qty: 8.5 2RF atorvastatin [Lipitor] 20 mg tablet 20 mg PO DAILY Qty: 30 3RF Trelegy Ellipta 100-62.5-25 mcg blister with device 1 inh inhalation DAILY 30 Days Qty: 28 1RF aspirin 81 MG tablet,delayed release (DR/EC) 81 mg PO DAILY Referrals Follow up/Referrals: Julian Reynaga MD [Primary Care Provider] - See instructions Activity Restrictions/Add. Instructions Additional Instructions/Restrictions: Please follow-up with your drug purchaser next week for recheck. If you have persistent new or worsening signs or symptoms follow-up with your PCP or return to the ER as needed. Clinical Impressions Clinical Impression: Acute exacerbation of chronic obstructive pulmonary disease Print Language Print Language: Lithuanian Discharge ED Provider: Hattie Birmingham HPI <LOKI Quintero - Last Filed: 10/29/24 15:57> General Chief Complaint: Shortness of Breath/Dyspnea Stated Complaint: SOB-COPD Time Seen by Provider: 10/29/24 12:39 History of Present Illness HPI narrative: Patient presents for evaluation of dyspnea. Patient states that he began feeling short of breath last night. He denies any chest pain fever chills hemoptysis hematochezia melena nausea vomiting diarrhea. He does have a history of COPD but is not on home oxygen or home nebulizer. Does follow with pulmonology here. Patient also has a history of atherosclerotic coronary vascular disease underwent a heart cath this month that did not require intervention. Related Data Home Medications ?Medication ?Instructions ?Recorded ?Confirmed aspirin 81 mg tablet,delayed 81 mg PO DAILY 10/22/18 10/25/24 release losartan 25 mg tablet 25 mg PO DAILY 10/17/24 10/25/24 Previous Rx's ?Medication ?Instructions ?Recorded albuterol sulfate 90 mcg/actuation 2 puff inhalation Q4-6H PRN 06/19/24 aerosol inhaler shortness of breath or wheezing #8.5 grams diltiazem HCl 120 mg 120 mg PO DAILY 30 days #30 caps 08/14/24 capsule,extended release 24 hr atorvastatin 20 mg tablet (Lipitor) 20 mg PO DAILY #30 tabs 09/14/24 fluticasone fur. 100 mcg-umeclid 1 inh inhalation DAILY 30 days #28 10/05/24 62.5 mcg-vilant 25 mcg ea inhalat.powder (Trelegy Ellipta) doxycycline hyclate 100 mg capsule 100 mg PO BID 10 days #20 caps 10/29/24 prednisone 50 mg tablet 50 mg PO DAILY 5 days #5 tabs 10/29/24 Allergies Allergy/AdvReac Type Severity Reaction Status Date / Time No Known Allergies Allergy Verified 10/25/24 10:50 [facility] <LOKI Quinteor - Last Filed: 10/29/24 15:57> [facility] Disclaimer: The information contained in this section may have been updated after the patient was seen, as this information can be updated by other users. Medical History CAD (coronary artery disease) Atypical angina HLD (hyperlipidemia) Abnormal nuclear cardiac imaging test History of CVA (cerebrovascular accident) Abnormal electrocardiogram [ECG] [EKG] Dyspnea on exertion Encounter for screening for malignant neoplasm of lung History of smoking 30 or more pack years Abnormal EKG Cough Hyponatremia Acute viral syndrome Hematoma of right flank Renal insufficiency Secondary polycythemia Muscle cramps Anxiety about health COPD (chronic obstructive pulmonary disease) Stroke Hypertension Social History Smoking Status: Former smoker tobacco type: cigarettes packs per day: 2 second hand exposure: Yes alcohol intake: never current occupational status: other Travel in the last 8 weeks?: None Have you lived/traveled outside [place] in past 30 days?: No Contact w/someone who lives/traveled outside [place] past 30 days?: No Exposure to someone with infectious disease in past 14 days?: No Do you have a fever (greater than 100.4 F or 38 C)?: No Have you tested positive for COVID-19?: No Exposed to someone with COVID-19 in past 14 days?: No Do you have a sore throat?: No Do you have a cough?: No Do you have any weakness?: No Do you have any diarrhea?: No Are you experiencing any unusual bleeding?: No Do you have any muscle aches/pain?: No Do you have any abdominal pain?: No Are you experiencing loss of taste or smell?: No Other Medical History Have you received the Flu Vaccine for this season: No Have you received the Pneumonia Vaccine: No <LOKI Quintero - Last Filed: 10/29/24 15:57> ROS Obtained: Yes Systems reviewed as appropriate & no additional complaints except as documented Physical Exam <LOKI Quintero Last Filed: 10/29/24 15:57> General General appearance: alert and in no apparent distress Respiratory Respiratory exam: Present normal lung sounds bilaterally Cardiovascular Cardiovascular exam: Present regular rate Neurological Exam Neurological exam: Present alert and oriented X3 HEART Score <LOKI Quintero Last Filed: 10/29/24 15:57> HEART Score HEART Score assessment performed?: Yes History (anamnesis): Slightly suspicious ECG: Non-specific disturbance Age: >65 years Risk factors: Atherosclerosis history Troponin: </= normal limit HEART Score: 5 Critical Care <LOKI Quintero Last Filed: 10/29/24 15:57> Critical Care Time Critical Care Time: Yes Attestation: On 10/29/24, the high probability of a clinically significant, sudden or life threatening deterioration of the following system(s) required my full and direct attention, intervention and personal management. The time I documented below is in addition to time spent performing reported procedures but includes the following listed in this critical care notation. Total Time Total Critical Care Time: 30 Medical Decision Making <LOKI Quintero Last Filed: 10/29/24 15:57> Medical Records Medical records reviewed: Yes I reviewed the patient's medical records. Jack Inquiry Pt receiving controlled substance: No Vital Signs Vital Signs: 10/29/24 12:44 10/29/24 13:00 10/29/24 13:30 Temperature 97.6 F Temperature Source Oral Pulse Rate 53 L Pulse Rate [Right] 74 Respiratory Rate 24 22 20 Blood Pressure 157/88 H Blood Pressure [Right Arm] 196/100 H Blood Pressure Mean [Right Arm] 132 02 Sat by Pulse Oximetry 97 75 L 95 Oxygen Delivery Method Room Air 10/29/24 14:00 10/29/24 14:30 10/29/24 14:45 Temperature 97.8 F Temperature Source Pulse Rate 56 L 64 60 Pulse Rate [Right] Respiratory Rate 19 20 20 Blood Pressure 147/80 H 154/81 H 147/80 H Blood Pressure [Right Arm] Blood Pressure Mean [Right Arm] 02 Sat by Pulse Oximetry 100 99 Oxygen Delivery Method Room Air Room Air Lab Data Lab results reviewed: Yes I reviewed the patient's lab results. Labs: Lab Results 10/29/24 12:45: WBC 7.9, RBC 4.85, Hgb 14.1, Hct 42.6, MCV 87.8, MCH 29.1, MCHC 33.1, RDW 12.2, Plt Count 291, MPV 10.7 H, Neut % (Auto) 63.3, Lymph % (Auto) 19.6, [place] % (Auto) 9.4 H, Eos % (Auto) 4.5, Baso % (Auto) 1.7, Neut # (Auto) 5.0, Lymph # (Auto) 1.5, [place] # (Auto) 0.7, Eos # (Auto) 0.4, Baso # (Auto) 0.1, D-Dimer 0.44, VBG pH 7.34, VBG pCO2 46.4, VBG pO2 34.3, VBG HCO3 24.6, VBG Total CO2 26.1, VBG O2 Saturation 64.8, VBG Base Excess -1.1, VBG Lactic Acid 2.3 H, Sodium 139, Potassium 4.0, Chloride 103, Carbon Dioxide 25, Anion Gap 15.0, BUN 13, Creatinine 1.10, Estimated Creat Clear 52, Estimated GFR 65, Est GFR ( Amer) 79, Glucose 108 H, Calcium 10.0, Magnesium 2.1, Total Bilirubin 0.5, AST 33, ALT 22, Alkaline Phosphatase 111, Troponin I < 0.01, NT-Pro-B Natriuret Pep 150, Total Protein 7.9, Albumin 5.1 H, Globulin 2.8, Albumin/Globulin Ratio 1.8 10/29/24 13:00: SARS-CoV-2 (PCR) Not detected, Influenza A Untype (PCR) Not detected, Influenza Type B (PCR) Not detected 10/29/24 12:45 10/29/24 12:45 Response Orders (Tests/Meds): ED MEDICATIONS Discontinued Medications Generic Name Dose Route Start Last Admin Trade Name Freq PRN Reason Stop Dose Admin Albuterol/Ipratropium 6 ml 10/29/24 13:41 10/29/24 13:51 Ipratropium/Albuterol 3 Ml Neb IH 10/29/24 13:42 6 ml ONCE ONE Administration Dexamethasone Sodium Phosphate 10 mg 10/29/24 13:41 10/29/24 13:51 Dexamethasone 4mg/Ml 5ml Mdv IV 10/29/24 13:42 10 mg ONCE ONE Administration ORDERS Category Date Time Status Chest XR 2 view (NOT portable) [XR chest 2V] Stat Exams 10/29/24 12:56 Completed BNP [NT Pro Brain Natriuretic Pep.] Stat Lab 10/29/24 12:45 Completed CBC w/Auto Diff [Complete Blood Count Auto Diff] Stat Lab 10/29/24 12:45 Completed CMP [Comprehensive Metabolic Panel] Stat Lab 10/29/24 12:45 Completed D-Dimer Stat Lab 10/29/24 12:45 Completed Magnesium Stat Lab 10/29/24 12:45 Completed Rapid PCR Covid and Flu A/B Stat Lab 10/29/24 13:00 Completed Trop I [Troponin I] Stat Lab 10/29/24 12:45 Completed Troponin I Q3H Lab 10/29/24 19:00 Ordered VBG [Venous Blood Gas] Stat RT 10/29/24 12:45 Completed MDM Narrative Medical Decision Narrative: In summary patient is a 74-year-old male who presents to the emergency department for evaluation of dyspnea. Patient is initially hypertensive on arrival with a blood pressure of 196/100 pulse 74 respiratory rate is 24 satting at 97% on room air with normal sinus rhythm on the bedside monitor upon arrival, with a temperature of 97.6. Physical exam is remarkable for clear breath sounds with no increased work of breathing or accessory muscle use, heart sounds S1-S2 regular rate rhythm without murmurs gallops rubs or thrills and no dependent edema noted, abdomen soft nontender no rebound or guarding no rigidity. Bowel sounds normal active.. Differential diagnosis includes COPD exacerbation versus ACS versus PE etc. Initial workup will be conducted with hematologic labs plain film chest x-ray twelve-lead EKG. Initial interventions include tenuous cardiac monitoring pulse oximetry DuoNeb Decadron Toradol Tylenol. Initial workup reviewed by me shows his hematologic labs are nonactionable troponin is undetectable COVID and flu are negative and D-dimer is negative. Upon repeat evaluation patient reports complete resolution of his symptoms after DuoNeb and Decadron.. Given this patient is appropriate for discharge with close follow-up with pulmonology and his PCP for persistent new or worsening signs or symptoms return to the ER as needed. <Hattie Birmingham, DO - Last Filed: 10/29/24 13:02> Vital Signs Vital Signs: 10/29/24 12:44 10/29/24 13:00 10/29/24 13:30 Temperature 97.6 F Temperature Source Oral Pulse Rate 53 L Pulse Rate [Right] 74 Respiratory Rate 24 22 20 Blood Pressure 157/88 H Blood Pressure [Right Arm] 196/100 H Blood Pressure Mean [Right Arm] 132 02 Sat by Pulse Oximetry 97 75 L 95 Oxygen Delivery Method Room Air 10/29/24 14:00 10/29/24 14:30 10/29/24 14:45 Temperature 97.8 F Temperature Source Pulse Rate 56 L 64 60 Pulse Rate [Right] Respiratory Rate 19 20 20 Blood Pressure 147/80 H 154/81 H 147/80 H Blood Pressure [Right Arm] Blood Pressure Mean [Right Arm] 02 Sat by Pulse Oximetry 100 99 Oxygen Delivery Method Room Air Room Air Lab Data Labs: Lab Results 10/29/24 12:45: WBC 7.9, RBC 4.85, Hgb 14.1, Hct 42.6, MCV 87.8, MCH 29.1, MCHC 33.1, RDW 12.2, Plt Count 291, MPV 10.7 H, Neut % (Auto) 63.3, Lymph % (Auto) 19.6, [place] % (Auto) 9.4 H, Eos % (Auto) 4.5, Baso % (Auto) 1.7, Neut # (Auto) 5.0, Lymph # (Auto) 1.5, [place] # (Auto) 0.7, Eos # (Auto) 0.4, Baso # (Auto) 0.1, D-Dimer 0.44, VBG pH 7.34, VBG pCO2 46.4, VBG pO2 34.3, VBG HCO3 24.6, VBG Total CO2 26.1, VBG O2 Saturation 64.8, VBG Base Excess -1.1, VBG Lactic Acid 2.3 H, Sodium 139, Potassium 4.0, Chloride 103, Carbon Dioxide 25, Anion Gap 15.0, BUN 13, Creatinine 1.10, Estimated Creat Clear 52, Estimated GFR 65, Est GFR ( Amer) 79, Glucose 108 H, Calcium 10.0, Magnesium 2.1, Total Bilirubin 0.5, AST 33, ALT 22, Alkaline Phosphatase 111, Troponin I < 0.01, NT-Pro-B Natriuret Pep 150, Total Protein 7.9, Albumin 5.1 H, Globulin 2.8, Albumin/Globulin Ratio 1.8 10/29/24 13:00: SARS-CoV-2 (PCR) Not detected, Influenza A Untype (PCR) Not detected, Influenza Type B (PCR) Not detected Response Orders (Tests/Meds): ED MEDICATIONS Discontinued Medications Generic Name Dose Route Start Last Admin Trade Name Freq PRN Reason Stop Dose Admin Albuterol/Ipratropium 6 ml 10/29/24 13:41 10/29/24 13:51 Ipratropium/Albuterol 3 Ml Neb IH 10/29/24 13:42 6 ml ONCE ONE Administration Dexamethasone Sodium Phosphate 10 mg 10/29/24 13:41 10/29/24 13:51 Dexamethasone 4mg/Ml 5ml Mdv IV 10/29/24 13:42 10 mg ONCE ONE Administration ORDERS Category Date Time Status Chest XR 2 view (NOT portable) [XR chest 2V] Stat Exams 10/29/24 12:56 Completed BNP [NT Pro Brain Natriuretic Pep.] Stat Lab 10/29/24 12:45 Completed CBC w/Auto Diff [Complete Blood Count Auto Diff] Stat Lab 10/29/24 12:45 Completed CMP [Comprehensive Metabolic Panel] Stat Lab 10/29/24 12:45 Completed D-Dimer Stat Lab 10/29/24 12:45 Completed Magnesium Stat Lab 10/29/24 12:45 Completed Rapid PCR Covid and Flu A/B Stat Lab 10/29/24 13:00 Completed Trop I [Troponin I] Stat Lab 10/29/24 12:45 Completed Troponin I Q3H Lab 10/29/24 19:00 Ordered VBG [Venous Blood Gas] Stat RT 10/29/24 12:45 Completed ECG Data Tracing #1: Attestation: I reviewed this ECG and interpreted as documented below: ECG Narrative: Normal sinus rhythm with a ventricular rate of 63 bpm. Incomplete right bundle branch block. Nonspecific ST/T wave changes without STEMI. Some motion artifact given work of breathing. ECG initial impression date: 10/29/24 ECG initial impression time: 12:52
[2024-10-29 12:44] VITALS: BP 196/100; PULSE 74; RESP 24; TEMP 36.4; O2SAT 97; BMI 21.9
--- NOTE | 2024-10-29 12:47 | ECG_ITS ---
APPROVED REPORT Exam: Resting ECG HR:63 bpm ECG Measurements Heart Rate 63 AXES ME 187 P 82 QRSd 94 QRS -54 QT 374 T 83 QTc 382 Conclusion SINUS RHYTHM INCOMPLETE RIGHT BUNDLE BRANCH BLOCK [90+ ms QRS DURATION, TERMINAL R IN V1/V2, 40+ ms S IN I/aVL/V4/V5/V6] LEFT ANTERIOR FASCICULAR BLOCK [QRS AXIS <= -45, QR IN I, RS IN II] Nonspecific changes not significantly changed from prior EKG, no STEMI Electronically signed by : RACHID SHARMA, 10/31/2024 20:00:13
--- NOTE | 2024-10-29 12:56 | XR_ITS ---
PROCEDURE INFORMATION: Exam: XR Chest Exam date and time: 10/29/2024 1:00 PM Age: 74 years old Clinical indication: Dyspnea TECHNIQUE: Imaging protocol: Radiologic exam of the chest. Views: 2 views. COMPARISON: CT LUNG SCREENING 10/23/2024 7:30 AM FINDINGS: Lungs: The lungs are hyperinflated with COPD changes. Stable old calcified granuloma in the right mid lung. No acute pulmonary infiltrates identified. Pleural spaces: Unremarkable. No pleural effusion. No pneumothorax. Heart/Mediastinum: Unremarkable. No cardiomegaly. Bones/joints: Unremarkable. IMPRESSION: COPD. No radiographic evidence of acute cardiopulmonary disease.
[2024-10-29 13:00] VITALS: RESP 22; O2SAT 75
[2024-10-29 13:04] LABS: Coronavirus 19, PCR Not Detected (NotDetected); Influenza A, PCR Not Detected (NotDetected); Influenza B, PCR Not Detected (NotDetected)
[2024-10-29 13:12] LABS: Alanine Aminotransferase 22 U/L (12-78); Albumin Level 5.1 g/dl (3.5-5.0); Albumin/Globulin Ratio 1.8 (1.1-1.8); Alkaline Phosphatase 111 U/L (38-126); Aspartate Amino Transferase 33 U/L (17-59); Bilirubin,Total 0.5 mg/dl (0.2-1.3); Blood Urea Nitrogen 13 mg/dl (9-20); Carbon Dioxide 25 mmol/L (22.0-30.0); Chloride 103 mmol/L (98-107); Creatinine Clearance Estimated 52 mL/min (50-200); Estimated Glomerular Filt Rate 65 ml/min (>60); GFR (African American) 79 ML/MIN (>60); Globulin 2.8 g/dL (1.3-3.2); Glucose 108 mg/dl (74-100); Magnesium 2.1 mg/dl (1.6-2.3); Sodium 139 mmol/L (136-145); Total Protein,Serum 7.9 g/dl (6.3-8.2); VBG Base Excess -1.1 mmol/L (-2.4-2.3); VBG HCO3 24.6 mmol/L (23-30); VBG Oxygen Saturation 64.8 % (50-70); VBG PCO2 46.4 mmol/L (35-51); VBG PH 7.34 mmol/L (7.31-7.41); VBG PO2 34.3 mmol/L (28-40); VBG Total CO2 26.1 mmol/L (23-27)
[2024-10-29 13:13] LABS: Lactate Venous 2.3 mmol/L (0.4-2.0)
[2024-10-29 13:17] LABS: D-Dimer 0.44 ug/mL (0.0-0.5)
[2024-10-29 13:23] LABS: NT Pro Brain Natriuretic Pep. 150 pg/mL (0-450)
[2024-10-29 13:30] VITALS: BP 157/88; PULSE 53; RESP 20; O2SAT 95
[2024-10-29 13:46] LABS: Basophils # 0.1 K/mm3 (0-0.2); Basophils % 1.7 % (0.1-2.0); Eosinophils # 0.4 Kmm3 (0.0-0.4); Eosinophils % 4.5 % (0.1-12.0); Hematocrit 42.6 % (42.0-52.0); Hemoglobin 14.1 g/dL (14.1-18.0); Immature Granulocytes # 0.12 10^3uL; Immature Granulocytes % 1.5 %; Lymphocytes # 1.5 K/mm3 (0.7-4.5); Lymphocytes % 19.6 % (10-50); Mean Corpuscular HGB Conc 33.1 g/dL (31.8-35.4); Mean Corpuscular Hemoglobin 29.1 pg (27.0-31.2); Mean Corpuscular Volume 87.8 fl (80-94); Mean Platelet Volume 10.7 fl (7.4-10.4); Monocytes # 0.7 K/mm3 (0.1-1.0); Monocytes % 9.4 % (1.7-9.3); Neutrophils % 63.3 % (37.0-80.0); Nucleated Red Blood Cells # 0 10^3/uL; Nucleated Red Blood Cells % 0 %; Platelet Count 291 K/mm3 (142-424); Red Blood Count 4.85 M/mm3 (4.60-6.20); Red Cell Distribution Width 12.2 % (11.5-17.5); Red Cell Distribution Width-SD 39.3 fL; White Blood Count 7.9 K/mm3 (4.8-10.8)
[2024-10-29] MEDS: DEXAMETHASONE 4MG/ML 5ML MDV 10 MG IV (13:51)
[2024-10-29] MEDS: IPRATROPIUM/ALBUTEROL 3 ML NEB 6 ML IH (13:51)
[2024-10-29 13:55] LABS: Troponin I < 0.01 ng/ml (0.00-0.034)
[2024-10-29 14:00] VITALS: BP 147/80; PULSE 56; RESP 19; O2SAT 100
[2024-10-29 14:30] VITALS: BP 154/81; PULSE 64; RESP 20; O2SAT 99
[2024-10-29 14:45] VITALS: BP 147/80; PULSE 60; RESP 20; TEMP 36.6; O2SAT 97
[2024-10-29 17:13] LABS: Reflex Lactic Add Lactic Reflex
== END 2024-10-29 14:46 | disposition home or self-care (01) ==
PROVIDERS: Physician Assistant; Emergency Provider Emergency Medicine; PCP Family Medicine
DX: J44.1 Chronic obstructive pulmonary disease with (acute) exacerbation (principal); I10 Essential (primary) hypertension; I25.10 Atherosclerotic heart disease of native coronary artery without angina pectoris; E78.5 Hyperlipidemia, unspecified; Z87.891 Personal history of nicotine dependence
CPT/HCPCS: 71046; 80053; 82803; 83735; 83880; 84484; 85025; 85378; 87636; 93005; 96374; 99285; J1100